=== PATIENT | female | born 1945 | race Caucasian/White ===

== ENCOUNTER 2016-09-15 08:56 | Emergency (ER) | payer MEDICARE ==
[~2016-09-15] VITALS: Ht 157.5 cm; Wt 47.3 kg
[~2016-09-15 08:56] MED LIST: ALEN70TA2 PO; ALPR0.5T PO; ARIP30TA PO; BUSP10TA2 PO; CETI10CA PO; CHOL10008 PO; DICL100G8 TOPICAL; DICY10CA13 PO; DOCU100C8 PO; DULO60CA42 PO; LEVO75TA4 PO; LIDO5CRE17 TOPICAL; MAGN296S PO; MELA3TAB35 PO; MIDO10TA PO; NITR100 PO; OMEG1CAP5 PO; OMEP-113 PO; ONDA8TAB10 PO; OXYC-465 PO; POLY17PO6 PO; QUET100T PO; SENN8.8S8 PO; SIMV20TA4 PO; SODI1PAC NS; TRAZ-118 PO; VITA1CAP PO; VITA400C64 PO
[2016-09-15 08:58] VITALS: PULSE 91; RESP 22; O2SAT 100
[2016-09-15 09:06] VITALS: BP 137/67; PULSE 91; RESP 21; O2SAT 100
--- NOTE | 2016-09-15 09:17 | ED.REPORT ---
HPI-General Illness Date of Service Sep 15, 2016 ED Provider: Marcel Miranda DO The patient is a 70 year old female with history of chronic kidney disease stage III, irritable bowel syndrome, fibromyalgia, and gout, who presents to the emergency department with multiple complaints. The patient complains of "severe" nausea, vomiting (x1 this morning), abdominal cramping, "violent" shaking and restlessness x 3 days, sore throat and nasal congestion, intermittent palpitations, and "10/10" back, abdominal and neck pain that she relates to old shingles pain. She is unsure why she is shaking. She denies fever, chills, hematemesis, diarrhea, constipation, dysuria, hematuria, shortness of breath or chest pain. Nursing Notes Stated Complaint: NAUSEA/HB PRESSURE/SHAKING Chief Complaint: General Complaint Nursing Notes Reviewed: Yes Allergies: Coded Allergies: levofloxacin (Verified Allergy, Severe, Anaphylaxis, 12/15/15) Penicillins (Verified Allergy, Unknown, Hives, 12/15/15) metoclopramide (Verified Allergy, Unknown, Hives, 12/15/15) Scheduled Alendronate Sodium (Fosamax) 70 Mg Tablet 70 MG PO WEEKLY Aripiprazole (Abilify) 30 Mg Tablet 30 MG PO HS Buspirone (Buspirone) 10 Mg Tablet 10 MG PO TID Cetirizine HCl (Zyrtec) 10 Mg Capsule 10 MG PO HS Cholecalciferol (Vitamin D3) (Vitamin D3) 1,000 Unit Tab.chew 1,000 UNIT PO DAILY Diclofenac Gel (Voltaren Gel) 100 Gm Tube 1 APPLIC TOPICAL QID Duloxetine (Cymbalta) 60 Mg Capsule.dr 60 MG PO HS Levothyroxine (Levothyroxine) 75 Mcg Tablet 75 MCG PO DAILY Lidocaine Cream (Lidocaine Cream) 5 Gm Cream..g. 1 APPLIC TOPICAL BID Melatonin (Melatonin) 3 Mg Tablet 3 MG PO HS Midodrine (Midodrine) 10 Mg Tablet 10 MG PO TID Nitrofurantoin Monohyd/M-Cryst (MacroBid) 100 Mg Capsule 100 MG PO BID [place]-3 Fatty Acids/Fish Oil (Fish Oil 1,000 mg Capsule) 1 Each Capsule 1 EACH PO DAILY Omeprazole Magnesium (Omeprazole) 20 Mg Capsule.dr 20 MG PO DAILYAC Polyethylene Glycol 3350 (Miralax) 17 Gm Powd.pack 17 GM PO DAILY Quetiapine Fumarate (Seroquel) 100 Mg Tablet 100 MG PO HS Simvastatin (Simvastatin) 20 Mg Tablet 20 MG PO DAILY Sodium Chloride/Sodium Bicarb (Sinucleanse Saline Packet) 1 Each Packet 1 EACH NS DAILY Trazodone (Trazodone) 100 Mg Tablet 400 MG PO HS Vitamin B Complex (Vitamin B Complex) 1 Each Capsule 1 EACH PO DAILY Vitamin E Mixed (Vitamin E) 400 Unit Capsule 400 UNIT PO DAILY Scheduled PRN Alprazolam (Xanax) 0.5 Mg Tablet 0.5 MG PO BID PRN PRN For Anxiety Dicyclomine (Dicyclomine) 10 Mg Capsule 10 MG PO QID PRN PRN For GI Cramps Docusate Sodium (Docusate Sodium) 100 Mg Capsule 100 MG PO TID PRN PRN For Constipation Magnesium Citrate (Magnesium Citrate) 296 Ml Solution 296 ML PO DAILY PRN PRN For Constipation Drink 1/2 bottle daily for 2 days. Repeat in 1 week. Magnesium Hydroxide (Milk of Magnesia) 400 Mg/5 Ml Oral.susp 15 ML PO DIRECTED PRN PRN For Constipation initially every 6 hours, then adjust to 1-2 times daily in order have soft BMs daily. Ondansetron ODT (Ondansetron ODT) 8 Mg Tab.rapdis 8 MG PO Q4H PRN PRN For Nausea Sennosides (Senna) 8.8 Mg/5 Ml Syrup 8.8 MG PO BID PRN PRN For Constipation oxyCODONE-Acetaminophen 7.5-325 mg (oxyCODONE-Acetaminophen 7.5-325 mg) 1 Each Tablet 1 TAB PO Q6HR PRN PRN For Pain oxyCODONE-Acetaminophen 7.5-325 mg (oxyCODONE-Acetaminophen 7.5-325 mg) 1 Each Tablet 1 TAB PO QID PRN PRN For Pain General Time Seen by MD: 09:10 Chief Complaint Multip medical complaints Hx Obtained From: Patient Arrived By: Walk-in Past Medical History Past Medical History Notes: PCP: CATHY Treadwell Past Medical History Psychiatric history-unspecified Chronic kidney disease stage three Right hip pain Gout Fibromyalgia Irritable bowel syndrome Arthritis Chronic back and neck pain Past Surgical History Exploratory abdominal surgery Reports: Appendectomy, Cholecystectomy, Hysterectomy, Tonsillectomy Family History Noncontributory Smoking History Never Smoker Social History Alcohol Use: "Social" Drug Use: THC Other Social History: Good social support, Frequent ED visitor, Local resident Ambulatory Status Independent Review of Systems Full Review of Systems Constitutional: Denies: Chills, Fever Ears / Nose / Throat: Reports: Nasal congestion, Sore throat Respiratory: Denies: Shortness of breath Cardiovascular: Reports: Palpitations, Denies: Chest pain GI: Reports: Abdominal pain, Nausea, Vomiting, Denies: Constipation, Diarrhea, Hematemesis Female: Denies: Dysuria, Hematuria Musculoskeletal: Reports: Back pain, Neck pain Neurologic: Reports: Shaking Complete sys rev & neg: except as marked. Physical Exam Vital Signs Vital Signs Date Time Temp Pulse Resp B/P Pulse Ox O2 Delivery O2 Flow Rate FiO2 09/15/16 12:42 82 16 144/72 09/15/16 09:06 91 21 137/67 100 Room Air 09/15/16 08:58 36.1 91 22 100 Initial VS: Reviewed Head / Eyes: Atraumatic, Normocephalic, PERRL ENT: Mucous membranes moist, Conjunctiva normal, No scleral icterus Neck: Supple, Non-tender, Full range of motion Respiratory: Breath sounds normal, Clear to auscultation, No respiratory distress Cardiovascular: Regular rate & rhythm, Heart sounds normal, Intact distal pulses Lymphatic: No lymphadenopathy Extremities: Vascular intact, Neuro intact, No swelling, No tenderness Skin: Warm, Dry, No cyanosis Neurologic: Alert, Oriented, Nonfocal Psychiatric: Mood/affect normal, Behavior normal, Normal thought content General/Constitutional: Awake, Alert Behavior: Positive: Restless Abdomen: Soft, No guarding, No rebound, BS normoactive, No distention, No hernia, No palpable mass, No pulsatile mass Tenderness/Guarding/Rebound: Positive: Tender diffuse Multiple surgical scars on her abdomen. Interpretation & Diagnostics Lab Results Interpretation Result Diagram: 09/15/16 0945 09/15/16 0945 Test 09/15/16 09:45 White Blood Count 4.5th/mm3 (3.8-10.1) Red Blood Count 4.93mil/mm3 (3.90-5.20) Hemoglobin 13.9g/dL (12.0-15.6) Hematocrit 42.2% (35.0-46.0) Mean Corpuscular Volume 85.6fL (81-100) Mean Corpuscular Hemoglobin 28.2pg (27.0-35.0) Mean Corpuscular Hemoglobin Concent 32.9% (32.0-37.0) Red Cell Distribution Width 13.5% (12.3-15.4) Platelet Count 286bil/L (150-400) Neutrophils (%) (Auto) 64.5% (40-74) Lymphocytes (%) (Auto) 22.7% (14-46) Monocytes (%) (Auto) 10.6% (4-12) Eosinophils (%) (Auto) 1.1% (0-5) Basophils (%) (Auto) 0.9% (0-3) Sodium Level 139mEq/L (134-144) Potassium Level 4.2mEq/L (3.5-5.2) Chloride Level 101mEq/L (97-108) Carbon Dioxide Level 23mmol/L (18-29) Blood Urea Nitrogen 16mg/dL (8-27) Creatinine 0.99mg/dL (0.57-1.00) Estimat Glomerular Filtration Rate 79mL/min (>59) Glucose Level 104mg/dL (60-99) Lactic Acid Level 1.4mmol/L (0.4-2.0) Calcium Level 10.1mg/dL (8.5-10.1) Magnesium Level 2.1mg/dL (1.6-2.6) Total Bilirubin 0.3mg/dL (0.0-1.2) Aspartate Amino Transf (AST/SGOT) 16U/L (0-50) Alanine Aminotransferase (ALT/SGPT) 12U/L (0-32) Alkaline Phosphatase 49U/L (25-165) Total Protein 7.3g/dL (6.4-8.4) Albumin 4.3g/dL (3.4-5.0) Lipase 100U/L (13-60) ECG Interpretation ECG Interpretation: Sinus rhythm with a rate of 67 PAC Time: 09:57 Interpreted by: ED physician CT Abd / Pelvis Interpretation IMPRESSION: 1. Moderate pneumobilia, unchanged from the study dated 12/08/15, and likely associated with prior biliary intervention. 2. Moderate amount of inspissated stool throughout the colon which may be the etiology the patient's abdominal pain. No zachary bowel obstruction. 2. No other acute intra-abdominal findings. The appendix is not visualized; however there are no ancillary findings to suggest acute appendicitis. Dictated by: Lottie Delcid M.D. on 09/15/2016 at 11:56 Interpretation / Wet Read by: Interpret - Radiologist Re-Eval/Medical Decision Source of Hx: Old records, Family Time of Eval: 12:12 Re-Evaluation/Progress Note: Rechecked the patient. Discussed CT results, diagnosis, and plan for discharge. All questions were addressed. Counseled Regarding: Diagnosis, Lab results, Need for follow-up, When/why to return to ED Discharge & Departure Primary Impression: Abdominal pain Abdominal location: unspecified location Qualified Code: R10.9 - Unspecified abdominal pain Additional Impression: Constipation Constipation type: unspecified constipation type Qualified Code: K59.00 - Constipation, unspecified Disposition: Home Discharge Condition All VS Reviewed: Yes Condition: Stable Patient Instructions: Constipation (ED) Additional Instructions: Thank you for entrusting us with your care today. Your CT scan shows evidence of constipation. Use the milk of magnesia and use a mineral oil enema today. if no solid BM, by tomorrow then use 2 fleets enemas one hour apart tomorrow. Make sure to drink plenty of fluids, Followup with your regular doctor next week if your pain is not improving. Return to the emergency department for any new or concerning symptoms. Referrals: Tosin Rincon (PCP) Scribe Attestation Portions of this note were transcribed by Karine Brown. I, Dr. Miranda personally performed the history, physical exam and medical decision-making; I reviewed and confirmed the accuracy of the information in the transcribed note. Signed by: Nelly Brewster, 09/15/2016 at 1236. copies to: Tosin Rincon Timothy S DO Sep 15, 2016 09:17 Karine Brown Sep 15, 2016 09:34
[2016-09-15] MEDS ORDERED: 0.9% Sodium Chloride 1,000 ML IV ONE (09:41)
[2016-09-15] MEDS ORDERED: Ondansetron 2 mg/mL 2 mL Inj IVPUSH PRN (09:45)
[2016-09-15] MEDS ORDERED: Iohexol 300 mg/mL 30 mL Inj PO ONE (09:55)
[2016-09-15 09:56] LABS: BASOPHILS % (AUTO) 0.9 % (0-3); EOSINOPHILS % (AUTO) 1.1 % (0-5); MONOCYTES % (AUTO) 10.6 % (4-12); Mean Corpuscular Hemoglobin 28.2 pg (27.0-35.0); Mean Corpuscular Volume 85.6 fL (81-100); NEUTROPHILS % (AUTO) 64.5 % (40-74); Platelet Count 286 bil/L (150-400)
[2016-09-15 10:21] LABS: Magnesium 2.1 mg/dL (1.6-2.6)
--- NOTE | 2016-09-15 12:09 | DRSVH ---
PROCEDURE: CT ABDOMEN AND PELVIS WITH CONTRAST ([id number]) INDICATIONS: abd pain, vomiting TECHNIQUE: After the administration of oral and intravenous contrast, 5 mm thick sections acquired from the diap hragms to the symphysis. 5 mm thick coronal and sagittal reformats were performed. For radiation do se reduction, the following was used: automated exposure control, adjustment of mA and/or kV accordi ng to patient size. COMPARISON: [facility], CT, CT ABD PELVIS W CON, 12/08/2015, 19:24. FINDINGS: Image quality: Excellent. ABDOMEN: Lung bases: Lung bases are clear. Heart size is normal. Solid organs: Liver and spleen are normal in size and enhancement. Gallbladder is surgically absent . Mild pneumobilia is present, unchanged from the study dated 12/08/15. Pancreas enhances normally. N o adrenal nodules. Kidneys are normal in size and enhancement, without hydronephrosis. Peritoneum and bowel: Stomach, small bowel, and colon loops are normal in caliber and wall thickness . A moderate mount of inspissated stool is present in the colon. The appendix is not visualized; guillory shamar there is no discrete right lower quadrant fluid or fat stranding to suggest acute appendicitis. N o free fluid or air. Nodes and vessels: No retroperitoneal or mesenteric adenopathy. Aorta and inferior vena cava are no rmal in caliber. There are scattered atheromatous calcifications throughout the aorta and iliac arter ies bilaterally. Miscellaneous: No ventral hernias. PELVIS: Genitourinary: Bladder wall thickness is normal. Miscellaneous: No inguinal hernias or adenopathy. Bones: No suspicious bony lesions. No vertebral body compression fractures. IMPRESSION: 1. Moderate pneumobilia, unchanged from the study dated 12/08/15, and likely associated with prior ashley iary intervention. 2. Moderate amount of inspissated stool throughout the colon which may be the etiology the patient's abdominal pain. No zachary bowel obstruction. 2. No other acute intra-abdominal findings. The appendix is not visualized; however there are no anci llary findings to suggest acute appendicitis. Dictated by: Lottie Delcid M.D. on 09/15/2016 at 11:56 Approved by: Lottie Delcid M.D. on 09/15/2016 at 12:07
[2016-09-15] MEDS ORDERED: MAGN400O4 PO (12:31)
[2016-09-15 12:42] VITALS: BP 144/72; PULSE 82; RESP 16
== END 2016-09-15 12:47 | disposition home or self-care (01) ==
LOC: SED 08:56
DX: K58.1 Irritable bowel syndrome with constipation (principal); N18.3 Chronic kidney disease, stage 3 (moderate); M79.7 Fibromyalgia; G89.29 Other chronic pain; Z87.19 Personal history of other diseases of the digestive system; Z87.39 Personal history of other diseases of the musculoskeletal system and connective tissue; Z88.1 Allergy status to other antibiotic agents; Z88.0 Allergy status to penicillin; Z88.8 Allergy status to other drugs, medicaments and biological substances
CPT/HCPCS: 36415; 74177; 80053; 83605; 83690; 83735; 85025; 93005; 96374; 96375; 99285; J2270; J2405; Q9967

== ENCOUNTER 2016-12-12 08:57 | Emergency (ER) | payer MEDICARE ==
[~2016-12-12] VITALS: Ht 157.5 cm; Wt 45.5 kg
[~2016-12-12 08:57] MED LIST changes: +MAGN400O4 PO
[2016-12-12 09:04] VITALS: BP 95/44; PULSE 64; RESP 12; O2SAT 97
--- NOTE | 2016-12-12 09:08 | ED.REPORT ---
HPI-Chest Pain 40 and Over Date of Service Dec 12, 2016 ED Provider: The patient is a 70 year old female with history of chronic kidney disease, fibromyalgia, irritable bowel syndrome, and chronic pain (on oxycodone - 9, 5 mg tabs daily), who sent to the emergency department from the [facility] for "low blood pressure" that was noted during her visit today. The patient tends to have lower blood pressure at baseline and takes midodrine for this reason,. Today she also felt dizzy and lightheaded which is not normal for her however this is now resolved. The patient has been experiencing chest pain over the last 2 months. She describes the pain as a heaviness and ache. Her pain comes and goes and seems to be brought on with increased stress. She is scheduled to have a treadmill stress test in the near future but has been unable to complete this because of a fractured wrist, she is working with her doctor to arrange for a chemical stress test. The patient does not believe she needs to be hospitalized at this time and states she is not sure why she was sent here. Nursing Notes Stated Complaint: CHEST PAIN Chief Complaint: Chest Pain Nursing Notes Reviewed: Yes Allergies: Coded Allergies: levofloxacin (Verified Allergy, Severe, Anaphylaxis, 12/15/15) Penicillins (Verified Allergy, Unknown, Hives, 12/15/15) metoclopramide (Verified Allergy, Unknown, Hives, 12/15/15) Scheduled Alendronate Sodium (Fosamax) 70 Mg Tablet 70 MG PO WEEKLY Aripiprazole (Abilify) 30 Mg Tablet 30 MG PO HS Buspirone (Buspirone) 10 Mg Tablet 10 MG PO TID Cetirizine HCl (Zyrtec) 10 Mg Capsule 10 MG PO HS Cholecalciferol (Vitamin D3) (Vitamin D3) 1,000 Unit Tab.chew 1,000 UNIT PO DAILY Diclofenac Gel (Voltaren Gel) 100 Gm Tube 1 APPLIC TOPICAL QID Duloxetine (Cymbalta) 60 Mg Capsule.dr 60 MG PO HS Levothyroxine (Levothyroxine) 75 Mcg Tablet 75 MCG PO DAILY Lidocaine Cream (Lidocaine Cream) 5 Gm Cream..g. 1 APPLIC TOPICAL BID Melatonin (Melatonin) 3 Mg Tablet 3 MG PO HS Midodrine (Midodrine) 10 Mg Tablet 10 MG PO TID Nitrofurantoin Monohyd/M-Cryst (MacroBid) 100 Mg Capsule 100 MG PO BID [place]-3 Fatty Acids/Fish Oil (Fish Oil 1,000 mg Capsule) 1 Each Capsule 1 EACH PO DAILY Omeprazole Magnesium (Omeprazole) 20 Mg Capsule.dr 20 MG PO DAILYAC Polyethylene Glycol 3350 (Miralax) 17 Gm Powd.pack 17 GM PO DAILY Quetiapine Fumarate (Seroquel) 100 Mg Tablet 100 MG PO HS Simvastatin (Simvastatin) 20 Mg Tablet 20 MG PO DAILY Sodium Chloride/Sodium Bicarb (Sinucleanse Saline Packet) 1 Each Packet 1 EACH NS DAILY Trazodone (Trazodone) 100 Mg Tablet 400 MG PO HS Vitamin B Complex (Vitamin B Complex) 1 Each Capsule 1 EACH PO DAILY Vitamin E Mixed (Vitamin E) 400 Unit Capsule 400 UNIT PO DAILY Scheduled PRN Alprazolam (Xanax) 0.5 Mg Tablet 0.5 MG PO BID PRN PRN For Anxiety Dicyclomine (Dicyclomine) 10 Mg Capsule 10 MG PO QID PRN PRN For GI Cramps Docusate Sodium (Docusate Sodium) 100 Mg Capsule 100 MG PO TID PRN PRN For Constipation Magnesium Citrate (Magnesium Citrate) 296 Ml Solution 296 ML PO DAILY PRN PRN For Constipation Drink 1/2 bottle daily for 2 days. Repeat in 1 week. Magnesium Hydroxide (Milk of Magnesia) 400 Mg/5 Ml Oral.susp 15 ML PO DIRECTED PRN PRN For Constipation initially every 6 hours, then adjust to 1-2 times daily in order have soft BMs daily. Ondansetron ODT (Ondansetron ODT) 8 Mg Tab.rapdis 8 MG PO Q4H PRN PRN For Nausea Sennosides (Senna) 8.8 Mg/5 Ml Syrup 8.8 MG PO BID PRN PRN For Constipation oxyCODONE-Acetaminophen 7.5-325 mg (oxyCODONE-Acetaminophen 7.5-325 mg) 1 Each Tablet 1 TAB PO Q6HR PRN PRN For Pain oxyCODONE-Acetaminophen 7.5-325 mg (oxyCODONE-Acetaminophen 7.5-325 mg) 1 Each Tablet 1 TAB PO QID PRN PRN For Pain General Time Seen by MD: 09:07 Chief Complaint Other (hypotension) Hx Obtained From: Patient, Daughter, Other family..., EMS Arrived By: Ambulance Sudden in Onset?: No Onset Occurred: More than a week ago... Symptom Duration: Since onset Quality: Painful Severity: Current: Mild Severity: Maximum: Moderate Recent Healthcare: No recent hospitalization, Recent doctor visit Similar Sx Previous: Yes Past Medical History Past Medical History Notes: PCP: CATHY Treadwell Past Medical History Psychiatric history-unspecified Chronic kidney disease stage three Right hip pain Gout Fibromyalgia Irritable bowel syndrome Arthritis Chronic back and neck pain Past Surgical History Exploratory abdominal surgery Reports: Appendectomy, Cholecystectomy, Hysterectomy, Tonsillectomy Family History Noncontributory Smoking History Never Smoker Social History Alcohol Use: "Social" Drug Use: THC Other Social History: Good social support, Frequent ED visitor, Local resident Ambulatory Status Independent Review of Systems Review of Systems Note: +hypotension Cardiovascular: Reports: Chest pain Neurologic: Reports: Dizziness, Lightheaded Complete sys rev & neg: except as marked. Physical Exam Initial Vital Signs Vital Signs (First) Date Time Temp Pulse Resp B/P Pulse Ox O2 Delivery O2 Flow Rate FiO2 12/12/16 09:04 36.3 64 12 95/44 97 12/12/16 11:14 Room Air Initial VS: Reviewed Head / Eyes: Atraumatic, Normocephalic, PERRL Neck: Supple, Non-tender, Full range of motion Lymphatic: No lymphadenopathy Extremities: Vascular intact, Neuro intact Skin: Warm, Dry, No cyanosis Neurologic: Alert, Oriented, Nonfocal Psychiatric: Mood/affect normal, Behavior normal, Normal thought content General/Constitutional: Awake, Alert, No acute distress, Well appearing Respiratory / Chest: Atraumatic, Breath sounds NL, Breath sounds = bilat, No respiratory distress, No rales, No rhonchi, No wheezing, No stridor, No chest tenderness Cardiovascular: Heart rate NL, Regular rhythm, Heart sounds NL, No gallop, No murmurs, No rubs, Cap refill not delayed, Peripheral circulation NL, Pulses = bilaterally, No gross BP differential Abdomen: Atraumatic, Soft, Non-tender, McBurney's non-tender, No guarding, No rebound, BS normoactive, No distention, No hernia, No palpable mass Lower Extremity / Pelvis / MS: Neurologic intact, Vascular intact, No edema ENT: Airway patent Mouth: Positive: Mucous membranes dry (slightly) Upper Extremity / MS: Neurologic intact, Vascular intact The patient has a cast on her right forearm. Interpretation & Diagnostics Lab Results Interpretation Result Diagram: 12/12/16 0932 12/12/16 0932 Test 12/12/16 09:32 White Blood Count 8.1th/mm3 (3.8-10.1) Red Blood Count 4.21mil/mm3 (3.90-5.20) Hemoglobin 12.2g/dL (12.0-15.6) Hematocrit 37.2% (35.0-46.0) Mean Corpuscular Volume 88.4fL (81-100) Mean Corpuscular Hemoglobin 29.0pg (27.0-35.0) Mean Corpuscular Hemoglobin Concent 32.8% (32.0-37.0) Red Cell Distribution Width 14.2% (12.3-15.4) Platelet Count 275bil/L (150-400) Neutrophils (%) (Auto) 74.3% (40-74) Lymphocytes (%) (Auto) 13.5% (14-46) Monocytes (%) (Auto) 10.6% (4-12) Eosinophils (%) (Auto) 0.9% (0-5) Basophils (%) (Auto) 0.5% (0-3) Sodium Level 137mEq/L (134-144) Potassium Level 3.8mEq/L (3.5-5.2) Chloride Level 100mEq/L (97-108) Carbon Dioxide Level 21mmol/L (18-29) Blood Urea Nitrogen 13mg/dL (8-27) Creatinine 0.89mg/dL (0.57-1.00) Estimat Glomerular Filtration Rate 90mL/min (>59) Glucose Level 122mg/dL (60-99) Calcium Level 9.1mg/dL (8.5-10.1) Magnesium Level 2.0mg/dL (1.6-2.6) Total Bilirubin 0.2mg/dL (0.0-1.2) Aspartate Amino Transf (AST/SGOT) 13U/L (0-50) Alanine Aminotransferase (ALT/SGPT) 11U/L (0-32) Alkaline Phosphatase 58U/L (25-165) Troponin T 0.010ug/L (0.0-0.011) Total Protein 6.0g/dL (6.4-8.4) Albumin 3.9g/dL (3.4-5.0) Hold Auguste Top Tube Received (Received) ECG Interpretation ECG Interpretation: Sinus rhythm with a rate of 52 bpm Multiple PVCs Normal axis Normal intervals No ST segment elevation Nonspecific T wave flattening in the anterior and lateral leads When compared to prior dated 09/15/16 PVCs are now present and T wave flattening is more pronounced. Time: 09:09 Interpreted by: ED physician X-Ray Chest Interpretation Chest Xray Interpretation: IMPRESSION: No acute cardiopulmonary disease. Dictated by: Mitchel Arguello M.D. on 12/12/2016 at 8:34 Interpretation / Wet Read by: Interpret - Radiologist Re-Eval/Medical Decision Med Decision/Clinical Course The patient is a 70 year old female with history of chronic kidney disease, fibromyalgia, irritable bowel syndrome, and chronic pain (on oxycodone - 9, 5 mg tabs daily), who sent to the emergency department from the [facility] for "low blood pressure" that was noted during her visit today. The patient tends to have lower blood pressure at baseline and takes midodrine for this reason,. Today she also felt dizzy and lightheaded which is not normal for her however this is now resolved. The patient has been experiencing chest pain over the last 2 months. She describes the pain as a heaviness and ache. Her pain comes and goes and seems to be brought on with increased stress. She is scheduled to have a treadmill stress test in the near future but has been unable to complete this because of a fractured wrist, she is working with her doctor to arrange for a chemical stress test. The patient does not believe she needs to be hospitalized at this time and states she is not sure why she was sent here. Here in emergency department the patient is alert/awake and in no apparent distress. Her initial blood pressure is borderline low however she was asymptomatic. Repeat blood pressures normalized. EKG was obtained and interpreted by myself as documented above. Chest x-ray demonstrated no acute cardio pulmonary process. LABS: CBC unremarkable, CMP unremarkable, troponin negative Emergency department the patient was alert/awake in no apparent distress. She did not desire hospitalization for expedited stress test and preferred to work with her primary care physician to arrange for outpatient stress test. She states she feels at baseline and like to be discharged. At this time I see no evidence of acutely life-threatening process. Her ongoing chest discomfort is somewhat concerning however she does not have major coronary artery disease risk factors or any history of coronary artery disease. I feel that in her case expedited outpatient workup is appropriate as long as she follows up closely with her primary care physician to make sure this gets done. Prior to discharge follow-up and return precautions were reviewed in detail with the patient who verbalized understanding and agreement with the plan. The patient was discharged in stable condition. Source of Hx: Old records, EMS Time of Eval: 11:11 Re-Evaluation/Progress Note: Rechecked the patient. Discussed plan for discharge. All questions were addressed. Counseled Regarding: Diagnosis, Lab results, Need for follow-up, When/why to return to ED Discharge & Departure Primary Impression: Hypotension Hypotension type: unspecified hypotension type Qualified Code: I95.9 - Hypotension, unspecified Additional Impressions: Chest pain Chest pain type: unspecified Qualified Code: R07.9 - Chest pain, unspecified Chronic pain syndrome Disposition: Home Discharge Condition All VS Reviewed: Yes Condition: Stable Patient Instructions: Chest Pain (ED) Additional Instructions: Thank you for entrusting us with your care today. Your workup today is reassuring. Call your regular doctor today to discuss scheduling a chemical stress test instead of the treadmill stress test. Continue taking your regularly prescribed medications. Make sure to drink plenty of fluids. Return to the emergency department for new or different chest pain, shortness of breath, syncope, or any other new or concerning symptoms. Referrals: Tosin Rincon (PCP) Scribe Attestation Portions of this note were transcribed by Karine Brown. I, Dr. Villarreal personally performed the history, physical exam and medical decision-making; I reviewed and confirmed the accuracy of the information in the transcribed note. Signed by: Nelly Brewster, 12/12/2016 at 1125. copies to: Tosin Rincon Beck O MD Dec 12, 2016 09:07 Karine Brown Dec 12, 2016 09:13
--- NOTE | 2016-12-12 09:37 | DRSVH ---
PROCEDURE: X-RAY CHEST ONE VIEW, PORTABLE ([id number]) INDICATIONS: 70 year-old female with chest pain for 2 months, now with slurred speech and headaches. TECHNIQUE: One view of the chest was acquired. COMPARISON: [facility], CR, XR ABD ACUTE SERIES 3VW, 09/01/2016, 13:48. [facility], CR, XR CHEST 2VW, 05/03/2016, 12:45. [facility], CR, XR ABD ACUTE SERIES 3VW, 11/25/2015, 18:21. FINDINGS: Surgical changes and devices: Cholecystectomy clips are again noted. Lungs and pleura: No pleural effusions or pneumothorax. Lungs are clear. Mediastinum: Mediastinal contours appear normal. Heart size is normal. Bones and chest wall: No suspicious bony lesions. There is thoracic and lumbar spine scoliosis. Ove rlying soft tissues appear unremarkable. IMPRESSION: No acute cardiopulmonary disease. Dictated by: Mitchel Arguello M.D. on 12/12/2016 at 8:34 Approved by: Mitchel Arguello M.D. on 12/12/2016 at 8:35
[2016-12-12 09:38] LABS: BASOPHILS % (AUTO) 0.5 % (0-3); EOSINOPHILS % (AUTO) 0.9 % (0-5); MONOCYTES % (AUTO) 10.6 % (4-12); Mean Corpuscular Volume 88.4 fL (81-100); NEUTROPHILS % (AUTO) 74.3 % (40-74); Platelet Count 275 bil/L (150-400)
[2016-12-12] MEDS ORDERED: 0.9% Sodium Chloride 1,000 ML IV ONE (09:40)
[2016-12-12 10:23] LABS: TROPONIN T 0.01 ug/L (0.0-0.011)
[2016-12-12 11:14] VITALS: BP 120/45; PULSE 58; RESP 16; O2SAT 97
[2016-12-12 11:24] VITALS: BP 120/45; PULSE 58; RESP 16; O2SAT 97
== END 2016-12-12 11:25 | disposition home or self-care (01) ==
LOC: SED 08:57
DX: I95.9 Hypotension, unspecified (principal); R07.89 Other chest pain; G89.29 Other chronic pain; M79.7 Fibromyalgia; Z88.0 Allergy status to penicillin; Z88.1 Allergy status to other antibiotic agents; Z88.8 Allergy status to other drugs, medicaments and biological substances

== ENCOUNTER → 2017-01-30 | Day surgery (SDC) | payer MEDICARE ==
[~2017-01-30] VITALS: Ht 152.4 cm; Wt 48.8 kg
[~2017-01-30] MED LIST changes: +Bupivacaine-MPF 0.5% 30 mL Inj INFILTRATE ONE; -CETI10CA PO; -DICY10CA13 PO; +DOCU-41 PO; -DOCU100C8 PO; +Dexamethasone 4 mg/mL Inj IVPUSH PRN; +EPHEDrine Sulfate 50 mg/mL Inj IVPUSH PRN; +HYDROmorphone 1 mg/mL Inj IVPUSH PRN; +Labetalol 5 mg/mL 20 mL Inj IV PRN; +Lactated Ringer's 1,000 ML IV SCH; +Lactated Ringer's 500 ML IV PRN; -MELA3TAB35 PO; +MELA3TAB54 PO; +MetoCLOpramide 5 mg/mL 2 mL Inj IVPUSH PRN; -NITR100 PO; -OMEG1CAP5 PO; +OMEP40CA36 PO; +Ondansetron 2 mg/mL 2 mL Inj IVPUSH PRN; -POLY17PO6 PO; +Phenylephrine 10,000 mCg/mL Inj IVPUSH PRN; +Propofol 10 mg/mL 20 mL Inj ONE; -SIMV20TA4 PO; +SODI1KIT NS; -VITA400C64 PO; +VITAMIN B COMPLEX PO; +Vancomycin Inj 1,000 MG in IV Premix 1 EACH IV SCH; +fentaNYL-PF 50 mCg/mL 2 mL Inj IVPUSH PRN; +fentaNYL-PF 50 mCg/mL 2 mL Inj ONE
--- NOTE | 2017-01-30 06:40 | PCM.HPANE ---
Patient Data Surgeon Admitting Provider: Attending Provider:Margi Hermosillo DPM Primary Care Physician:Tosin Rincon Other Provider:Shana Eckertingham Anesthesia Reason for Visit Left Foot Hammertoe, Left Foot Pain Ht/WT & BMI Height (Feet): 5 Height (Inches): 1 Weight (Kilograms): 46.7 Body Mass Index 19.00 Allergies Coded Allergies: Sulfa (Sulfonamide Antibiotics) (Verified Allergy, Severe, 01/26/17) ciprofloxacin (Verified Allergy, Severe, 01/26/17) levofloxacin (Verified Allergy, Severe, Anaphylaxis, 01/26/17) Penicillins (Verified Allergy, Unknown, Hives, 01/26/17) metoclopramide (Verified Allergy, Unknown, Hives, 01/26/17) Past Anesthesia History Anesthesia History: Denies:: Abnormal Airway, Anesthesia Reactions, Difficult Intubation, Fam Anesthesia Reaction, Fam Malignant Hypertherm, Malignant Hyperthermia Diabetes History Hx Diabetes?: No MRSA MRSA: No Medications Active Scripts Magnesium Hydroxide (Milk of Magnesia)400 Mg/5 Ml Oral.susp15 Ml PO DIRECTED PRN For Constipation #1 BOTTLE initially every 6 hours, then adjust to 1-2 times daily in order have soft BMs daily. Prov:Marcel Miranda DO 09/15/16 Magnesium Citrate 296 Ml Oesbyhtn401 Ml PO DAILY PRN For Constipation #2 BOTTLE Drink 1/2 bottle daily for 2 days. Repeat in 1 week. Prov:Gokul Navarrete MD 12/08/15 oxyCODONE-Acetaminophen 7.5-325 mg 1 Each Tablet1 Tab PO QID PRN For Pain #20 TABLET Ref 0 Prov:Gokul Navarrete MD 12/08/15 Ondansetron ODT 8 Mg Tab.rapdis8 Mg PO Q4H PRN For Nausea #20 TABLET Prov:Gokul Navarrete MD 12/08/15 Reported Medications [Vitamin B Complex] No Conflict Check1 Tab PO DAILY 01/30/17 Sodium Chloride/Sodium Bicarb (Sinuflo Readyrinse Nasal Kit)1 Each Kit1 Each NS PRN 01/30/17 Omeprazole 40 Mg Capsule.dr40 Mg PO DAILY 01/30/17 Melatonin (Melatin)3 Mg Tablet5 Mg PO HS #3 TABLET 01/26/17 Docusate Sodium (Colace)100 Mg Dlvnsdn237 Mg PO DAILY PRN For Constipation Ref 0 01/26/17 Alprazolam (Xanax)0.5 Mg Tablet0.5 Mg PO BID PRN For Anxiety Ref 0 09/17/15 Diclofenac Gel (Voltaren Gel)100 Gm Tube1 Applic TOPICAL QID #1 TUBE 09/17/15 Cholecalciferol (Vitamin D3) (Vitamin D3)1,000 Unit Tab.chew1,000 Unit PO DAILY 09/17/15 Trazodone 100 Mg Cxqpkr551 Mg PO HS Ref 0 09/17/15 Quetiapine Fumarate (Seroquel)100 Mg Uixjqd785 Mg PO HS Ref 0 09/17/15 Midodrine 10 Mg Awayuv70 Mg PO TID 09/17/15 Lidocaine Cream 5 Gm Cream..g.1 Applic TOPICAL BID 09/17/15 Alendronate Sodium (Fosamax)70 Mg Wbhfwi47 Mg PO WEEKLY 30 Days Ref 0 09/17/15 Duloxetine (Cymbalta)60 Mg Capsule.dr60 Mg PO HS Ref 0 09/17/15 Buspirone 10 Mg Exmhdk69 Mg PO TID Ref 0 09/17/15 Levothyroxine 75 Mcg Ktslxm08 Mcg PO DAILY 11/20/14 Aripiprazole (Abilify)30 Mg Ymofsr28 Mg PO HS 11/20/14 Discontinued Reported Medications Sodium Chloride/Sodium Bicarb (Sinucleanse Saline Packet)1 Each Packet1 Each NS DAILY 09/17/15 Vitamin B Complex 1 Each Capsule1 Each PO DAILY 11/20/14 Sennosides (Senna)8.8 Mg/5 Ml Syrup8.8 Mg PO BID PRN For Constipation 11/20/14 Omeprazole Magnesium (Omeprazole)20 Mg Capsule.dr20 Mg PO DAILYAC 11/20/14 Cetirizine HCl (Zyrtec)10 Mg Kyhiycp86 Mg PO HS #30 CAPSULE Ref 0 09/17/15 oxyCODONE-Acetaminophen 7.5-325 mg 1 Each Tablet1 Tab PO Q6HR PRN For Pain Ref 0 09/17/15 Melatonin 3 Mg Tablet3 Mg PO HS 09/17/15 Vitamin E Mixed (Vitamin E)400 Unit Qadyfbr592 Unit PO DAILY 11/20/14 Polyethylene Glycol 3350 (Miralax)17 Gm Powd.pack17 Gm PO DAILY 11/20/14 [place]-3 Fatty Acids/Fish Oil (Fish Oil 1,000 mg Capsule)1 Each Capsule1 Each PO DAILY 11/20/14 Docusate Sodium 100 Mg Mykldvp494 Mg PO TID PRN For Constipation 30 Days Ref 0 11/20/14 Simvastatin 20 Mg Byhnly19 Mg PO DAILY 11/20/14 Discontinued Scripts Dicyclomine 10 Mg Nkkipza45 Mg PO QID PRN For GI Cramps #20 CAPSULE Ref 0 Prov:Naeem Vázquez MD 12/15/15 Nitrofurantoin Monohyd/M-Cryst (MacroBid)100 Mg Avdesfz169 Mg PO BID 5 Days Ref 0 Prov:Froy Jennings 09/17/15 History History of ENT Problems?: No HEENT History: Positive for:: Sinus Problem (prone to sinus infections) Denies:: Abnormal Airway Difficult Intubation Dysphagia Hearing Problem TMJ Denture Type: None Retainer/Research Biologist Teeth Condition: Within Normal Limits Hx of Heart Problems?: No Cardiovascular History: Denies:: Abdominal Aortic Aneurism Atrial Fibrillation Cardiac Surgery Chest Pain Congestive Heart Failure Hypertension Rheumatic Fever Hx of Respiratory Problem?: No Respiratory History: Positive for:: Pneumonia Use of Inhalers / NEBS Denies:: Asthma COPD Chest Surgery Cough Dyspnea Emphysema Hemoptysis Oxygen Administration Pulmonary Embolism Tuberculosis Use of C-PAP Machine Hx Neurologic Problems?: No Neurological History: Positive for:: Dementia Seizures (febrile seizure) Denies:: Alzheimer's Disease CVA Dizziness Headaches Multiple Sclerosis Parkinson's Disease TIA Hx of GI Problems?: No Hx of Problems?: No Genitourinary History: Denies:: HX of Hemodialysis Urinary Tract Infection HX of Peritoneal Dialysis: No Skin History: Denies:: History Skin Disorders? Pressure Ulcers Hx Musculoskeletal Problems?: No Musculoskeletal History: Positive for:: Fibromyalgia Musculoskeletal Trauma (wrist fracture 2017) Rheumatoid Arthritis Denies:: Back Injury Degenerative Joint Joint Replacement Myasthenia Gravis Osteoarthritis Hx of Psycho/Social Problems?: No Psycho Social History: Positive for:: Anxiety Bipolar Disorder Hx Depression Hx Surgeries?: No (graeme, MESSI, appe, open lab with removal of left over ovary missed on MESSI.) Hx Any Other Health Problems?: No Other History: Positive for:: Thyroid Disease (hypothyroid) Denies:: Cancer Endocrine Disease History Blood Transfusions: Positive for:: Accept Blood Products? Denies:: Blood Transfusions Hx Diabetes: No Hx Alcohol Use: Yes (occasional beer or wine)Hx Substance Use: Yes (eatables) Smoking Status: Never Smoker Have You Smoked inLast 12 mo: No Stop/Bang S-Snoring: Do You Snore Loudly: Yes T-Tired: feel tired, fatigued: Yes O-Obsered: Observed not breath: No P-Blood Pressure: treated: No B- Body Mass Index > 35 kg/m2: No A- Age over 50: Yes N- Neck Large Circumference: No G- Gender Male: No MARY JANE Total Score: 3 MARY JANE Risk Assessment: Low Risk, <3 Yes Risk Assessment Category Category 1A: Patient has history of documented sleep apnea, and HAS NOT received any narcotic, sedative or anesthesia administration during this stay. Category 1B: Patient has history of documented sleep apnea, and HAS received any narcotic , sedative or anesthesia administration during this stay Category 2: Patient has SUSPECTED Obstructive Sleep Apnea, and HAS received any narcotic , sedative or anesthesia administration during this stay. Category 3: Patient has SUSPECTED Obstructive Sleep Apnea and HAS NOT received narcotic, sedative or anesthesia administration during this stay. Category 4: Outpatient in Procedural Areas with known sleep apnea or who screen positive for High Risk via the STOP/BANG questionnaire. Exam Exam General Appearance: Alert, Oriented X3, Cooperative, No Acute Distress HEENT/AIRWAY: MP 2 Lungs: Clear to Auscultation, Normal Air Movement Heart: Exam Unremarkable, Regular Rate/Rhythm, No Murmurs/Rubs/Gallops Plan Impression Patient chart reviewed, patient interviewed and anesthestic plan with risks, benefits, and alternatives discussed, and informed consent obtained. ASA Physical Status: ASA2 Mod Systemic Disease Anesthetic Plan: MAC Bene/Risks/Altern/Consents: Yes HP Complete Prior to Induction: Yes Svetlana Hartman MD Jan 30, 2017 06:40
[2017-01-30] MEDS: Lactated Ringer's 1,000 ML IV SCH ×2 (06:54→08:53)
[2017-01-30 07:36] VITALS: BP 104/50; PULSE 63; RESP 16; O2SAT 98
[2017-01-30 09:30] VITALS: BP 117/50; PULSE 66; RESP 18; O2SAT 97
--- NOTE | 2017-01-30 09:46 | PCM.PODPO ---
Podiatry Operative Report Date of Service: Jan 30, 2017 Date of Service Jan 30, 2017 Pre Operative Diagnosis Left 2nd hammertoe Post Operative Diagnosis Left 2nd hammertoe Procedure Left 2nd hammertoe repair (fusion of PIP joint) Surgeon Surgeon: Margi Hermosillo DPM Assistants: Anant Hu MS4 Indication for Procedure Painful digit, left second toe Findings Well corrected deformity after excision of proximal interphalangeal joint and reapproximation Details of Procedure The patient was identified in the preoperative holding area and brought back to the operating room. She was placed on the operating table in supine position. The timeout protocol was completed in the patient's name and site of surgery confirmed. IV sedation was initiated. The patient's left foot was anesthetized in the second ray block. The left foot was prepped and draped in usual aseptic manner. The patient's foot was kept elevated on the bone foam positioner. Incision was made on the dorsal aspect of the proximal interphalangeal joint, set slightly laterally and extended to the metatarsophalangeal joint. Using a # 15 scalpel the extensor tendon was transected at the proximal interphalangeal joint, the lateral collateral ligaments were freed off of the proximal phalangeal head and middle phalangeal base. The joint surfaces were resected using a bone saw. Edges were excised with the rongeur. The wound was irrigated with normal saline. A 0.045 inch K wire was used to create a channel for the monofilament wire for fixation. This was done with distal dorsally through the center of the base of the middle phalanx, extending through the middle of the proximal phalangeal head and extending dorsally and proximally. A loop fixation with a 26-gauge monofilament wire was performed. The joint was well coapted and directly visualized. No x-rays were necessary. The extensor tendon was transected further to decrease this lack of the tendon at the proximal interphalangeal level. A 4-0 Vicryl suture was used in of horizontal and simple interrupted stitch technique to reapproximate the tendon ends. The subcuticular tissue was closed with 4-0 Vicryl with buried knots. This was reinforced with Steri-Strips. The dressing consisted of Lowe silk, normal saline moistened gauze, Kerlix, and Coban. IV sedation was weaned off and the patient was transported to the day surgery with vital signs stable and the vascular status to the left foot intact. Grafts, Implants: Implants-See Implant Record Complications There were no periprocedural complications identified. Condition Stable Anesthetic Administered: MAC Drains: None Catheters: None Output, Estimated Blood Loss: 5 (ml) Blood Admin during surgery: No Surgical Cast or Splint: Post-op Boot Surgical Specimen Removed: No Specimen sent to Pathology: No Post Operative Plan Weightbearing as tolerated is indicated in a postoperative shoe. The patient is to keep the dressing clean, dry, intact until the follow-up visit in 1 week. Postop pain medication was previously prescribed. Margi Hermosillo DPM Jan 30, 2017 09:46
[2017-01-30 10:03] VITALS: BP 124/55; PULSE 61; RESP 18; O2SAT 97
--- NOTE | 2017-01-30 10:05 | PCM.ANEP1 ---
Post Anesthesia PACU Phase 1 Assessment Vital Signs Vital Signs Date Time Temp Pulse Resp B/P Pulse Ox O2 Delivery O2 Flow Rate FiO2 01/30/17 10:03 61 18 124/55 97 Room Air 01/30/17 09:30 36.2 66 18 117/50 97 Room Air 01/30/17 07:36 36.8 63 16 104/50 98 Room Air Anesthetic Administered: MAC Level of Alertness: Awake, talking HAYES's with Equal Strength: Yes Pain: No Nausea or Vomiting: No CV Function & Hydration Stable: No Airway Device: Lungs: Clear to Auscultation, Normal Air Movement PACU Phase 2 Assessment Complications: No Follow up Care: No Patient Instructions Provided: N/A Svetlana Hartman MD Jan 30, 2017 10:05
== END | disposition home or self-care (01) ==
LOC: SAS 06:49
PROVIDERS: ATTEND Podiatrist
DX: M20.42 Other hammer toe(s) (acquired), left foot (principal); M79.672 Pain in left foot; M79.7 Fibromyalgia; E78.00 Pure hypercholesterolemia, unspecified; N18.3 Chronic kidney disease, stage 3 (moderate); F31.9 Bipolar disorder, unspecified; E03.9 Hypothyroidism, unspecified; F41.9 Anxiety disorder, unspecified; J44.9 Chronic obstructive pulmonary disease, unspecified; F12.90 Cannabis use, unspecified, uncomplicated
CPT/HCPCS: 28285; J2250; J2704; J3010; J3370; J7120

== ENCOUNTER 2017-02-07 14:51 | Inpatient (IN) | payer MEDICARE ==
[~2017-02-07] VITALS: Ht 152.4 cm; Wt 51.8 kg
[2017-02-07] VITALS (9 sets, daily range): BP systolic 96–157; BP diastolic 44–82; PULSE 42–74; RESP 10–18; O2SAT 94–99
[~2017-02-07 14:51] MED LIST changes: -Bupivacaine-MPF 0.5% 30 mL Inj INFILTRATE ONE; -Dexamethasone 4 mg/mL Inj IVPUSH PRN; -EPHEDrine Sulfate 50 mg/mL Inj IVPUSH PRN; -HYDROmorphone 1 mg/mL Inj IVPUSH PRN; -Labetalol 5 mg/mL 20 mL Inj IV PRN; -Lactated Ringer's 1,000 ML IV SCH; -Lactated Ringer's 500 ML IV PRN; -MetoCLOpramide 5 mg/mL 2 mL Inj IVPUSH PRN; -OMEP-113 PO; -Ondansetron 2 mg/mL 2 mL Inj IVPUSH PRN; -Phenylephrine 10,000 mCg/mL Inj IVPUSH PRN; -Propofol 10 mg/mL 20 mL Inj ONE; -SENN8.8S8 PO; -SODI1PAC NS; -VITA1CAP PO; -Vancomycin Inj 1,000 MG in IV Premix 1 EACH IV SCH; -fentaNYL-PF 50 mCg/mL 2 mL Inj IVPUSH PRN; -fentaNYL-PF 50 mCg/mL 2 mL Inj ONE
[2017-02-07 16:05] LABS: BASOPHILS % (AUTO) 0.6 % (0-3); MONOCYTES % (AUTO) 10.1 % (4-12); Mean Corpuscular Hemoglobin 29.4 pg (27.0-35.0); Mean Corpuscular Volume 86.1 fL (81-100); NEUTROPHILS % (AUTO) 64.2 % (40-74); Platelet Count 371 bil/L (150-400)
--- NOTE | 2017-02-07 16:10 | ED.REPORT ---
HPI-General Illness Date of Service Feb 07, 2017 ED Provider: Renzo Villarreal MD Pt is a 71 year old female presenting to the ED brought in by her brother for concern of accidental overdose on prescription drugs. Pt is noted to take Xanax and Percocet for pain related to a recent foot surgery. She complains of nausea , dizziness and fatigue but denies any suicidal ideation or intentional overdose. Denies vomiting, chills, fever, SOB or wheezing. Her brother reports that she had left foot surgery about a week ago, and has been sleeping a lot since. This morning she slept in later than usual until 0830 and was at baseline after awakening. Her brother left the house at 1030 and when he returned she was deeply sleeping and he was unable to wake her up. There is no known history of trauma, upon further questioning after noting the patient's profound bradycardia she states that she "has been seen for this before" but does not take any medications and is not sure if she is ever seen a cardiology. Nursing Notes Stated Complaint: POSS INTENTIONAL OVERDOSE Chief Complaint: General Complaint Nursing Notes Reviewed: Yes Allergies: Coded Allergies: Sulfa (Sulfonamide Antibiotics) (Verified Allergy, Severe, 01/26/17) ciprofloxacin (Verified Allergy, Severe, 01/26/17) levofloxacin (Verified Allergy, Severe, Anaphylaxis, 01/26/17) Penicillins (Verified Allergy, Unknown, Hives, 01/26/17) metoclopramide (Verified Allergy, Unknown, Hives, 01/26/17) Scheduled Alendronate Sodium (Fosamax) 70 Mg Tablet 70 MG PO WEEKLY Sunday mornings Alprazolam (Xanax) 0.5 Mg Tablet 1 MG PO TID Aripiprazole (Abilify) 30 Mg Tablet 30 MG PO HS Buspirone (Buspirone) 10 Mg Tablet 10 MG PO TID Cholecalciferol (Vitamin D3) (Vitamin D3) 1,000 Unit Tab.chew 6,000 UNIT PO DAILY Donepezil (Donepezil) 10 Mg Tablet 10 MG PO HS Duloxetine (Cymbalta) 60 Mg Capsule.dr 60 MG PO HS Levothyroxine (Levothyroxine) 75 Mcg Tablet 75 MCG PO DAILY Lidocaine Cream (Lidocaine Cream) 5 Gm Cream..g. 1 APPLIC TOPICAL BID Lubiprostone (Amitiza) 24 Mcg Capsule 24 MCG PO BIDBL Melatonin (Melatonin) 5 Mg Tablet 10 MG PO HS Midodrine (Midodrine) 10 Mg Tablet 10 MG PO TID Multivitamin (Multi Vitamin Daily) 1 Each Tablet 1 EACH PO DAILY Omeprazole (Omeprazole) 40 Mg Capsule.dr 40 MG PO DAILY Prazosin (Prazosin) 1 Mg Capsule 4 MG PO HS Quetiapine Fumarate (Seroquel) 100 Mg Tablet 100 MG PO HS Trazodone (Trazodone) 100 Mg Tablet 400 MG PO HS Scheduled PRN Ondansetron (Ondansetron) 4 Mg Tablet 4 MG PO TID PRN PRN For Nausea oxyCODONE-Acetaminophen 5-325 mg (oxyCODONE-Acetaminophen 5-325 mg) 1 Each Tablet 1-2 TAB PO Q4-6H PRN PRN For Pain General Time Seen by MD: 15:03 Chief Complaint Other (Fatigue) Hx Obtained From: Patient, Other family... (brother) Arrived By: Walk-in Sudden in Onset?: No Onset Occurred: 1 week ago Symptom Duration: Since onset Severity: Current: No pain currently Severity: Maximum: No pain Recent Healthcare: No recent hospitalization, Recent doctor visit, Previous surgery Similar Sx Previous: No Past Medical History Past Medical History Notes: PCP: CATHY Treadwell Past Medical History Psychiatric history-unspecified Chronic kidney disease stage three Right hip pain Gout Fibromyalgia Irritable bowel syndrome Arthritis Chronic back and neck pain Past Surgical History Exploratory abdominal surgery Left foot surgery Reports: Appendectomy, Cholecystectomy, Hysterectomy, Tonsillectomy Family History Noncontributory Smoking History Never Smoker Social History Alcohol Use: "Social" Drug Use: THC Other Social History: Good social support, Frequent ED visitor, Local resident Ambulatory Status Independent Review of Systems Full Review of Systems Constitutional: Reports: Fatigue, Denies: Chills, Fever Respiratory: Denies: Shortness of breath, Wheezing GI: Reports: Nausea, Denies: Vomiting Neurologic: Reports: Dizziness Psychiatric: Denies: Suicidal ideation Complete sys rev & neg: except as marked. Physical Exam Vital Signs Vital Signs Date Time Temp Pulse Resp B/P Pulse Ox O2 Delivery O2 Flow Rate FiO2 02/07/17 16:27 58 10 134/59 97 02/07/17 15:38 36.6 42 14 96/44 98 Room Air 02/07/17 15:06 36.6 55 12 116/57 99 Room Air 02/07/17 14:55 36.6 46 12 157/82 99 Room Air Initial VS: Reviewed Abdomen / GI: Soft, Non-tender, No guarding, No rebound, No distention Extremities: Vascular intact, Neuro intact, No swelling, No tenderness Skin: Warm, Dry, No cyanosis Neurologic: Alert, Oriented, Nonfocal Psychiatric: Mood/affect normal, Behavior normal, Normal thought content General/Constitutional: Awake, Alert Extremely dry mucuous membranes. Answering questions. Intermittently nodding off as she becomes intermittently bradycardic into the 30s. Head / Eyes: Atraumatic, Normocephalic Pupils slightly pinpoint. Respiratory / Chest: Breath sounds NL, No respiratory distress, No rales, No rhonchi, No wheezing Breathing normally. Cardiovascular: Regular rhythm, Heart sounds NL, No gallop, No murmurs, No rubs Heart Rate / Rhythm: Positive: Bradycardia Lower Extremity / Pelvis / MS: No deformity, Neurologic intact, Vascular intact Post op shoe on left foot. No calf swelling or tenderness. Interpretation & Diagnostics Lab Results Interpretation Result Diagram: 02/07/17 1559 02/07/17 1559 Test 02/07/17 15:59 02/07/17 16:27 White Blood Count 6.9th/mm3 (3.8-10.1) Red Blood Count 4.45mil/mm3 (3.90-5.20) Hemoglobin 13.1g/dL (12.0-15.6) Hematocrit 38.3% (35.0-46.0) Mean Corpuscular Volume 86.1fL (81-100) Mean Corpuscular Hemoglobin 29.4pg (27.0-35.0) Mean Corpuscular Hemoglobin Concent 34.2% (32.0-37.0) Red Cell Distribution Width 13.2% (12.3-15.4) Platelet Count 371bil/L (150-400) Neutrophils (%) (Auto) 64.2% (40-74) Lymphocytes (%) (Auto) 22.8% (14-46) Monocytes (%) (Auto) 10.1% (4-12) Eosinophils (%) (Auto) 2.0% (0-5) Basophils (%) (Auto) 0.6% (0-3) Sodium Level 136mEq/L (134-144) Potassium Level 5.3mEq/L (3.5-5.2) Chloride Level 98mEq/L (97-108) Carbon Dioxide Level 23mmol/L (18-29) Blood Urea Nitrogen 22mg/dL (8-27) Creatinine 1.04mg/dL (0.57-1.00) Estimat Glomerular Filtration Rate 75mL/min (>59) Glucose Level 119mg/dL (60-99) Calcium Level 9.1mg/dL (8.5-10.1) Total Bilirubin 0.3mg/dL (0.0-1.2) Aspartate Amino Transf (AST/SGOT) 20U/L (0-50) Alanine Aminotransferase (ALT/SGPT) 14U/L (0-32) Alkaline Phosphatase 57U/L (25-165) Troponin T < 0.010ug/L (0.0-0.011) Total Protein 7.2g/dL (6.4-8.4) Albumin 4.1g/dL (3.4-5.0) Thyroid Stimulating Hormone (TSH) 1.010uIU/mL (0.450-4.500) Salicylates Level < 3.0ug/mL (30-250) Acetaminophen Level < 15.0ug/mL Rx (10-25) Alcohols < 10mg/dL (0-10) Hold Auguste Top Tube Received (Received) ECG Interpretation ECG Interpretation: Sinus bradycardia with a rate of 46. Normal axis and intervals. No ST elevation or Q wave abnormalities. When compared to prior dated 12/12/2016 she remains bradycardic. No acute morphological changes. Occasional PVCs no longer present. Time: 15:50 Interpreted by: ED physician Re-Eval/Medical Decision Med Decision/Clinical Course In summary, the patient is a 71-year-old female who presents to the emergency department due to concern for possible accidental overdose of benzodiazepine and opiate medications. Upon arrival she is noted to be profoundly bradycardic with a heart rate dipping down into the 30s and associated with hypotension with blood pressure in the 70s to 80s systolic. She is noted to become very somnolent with increasing bradycardia and increasing level of consciousness when her heart rate increases. Her overall presentation is not consistent with benzodiazepine or opiate toxidrome. She is noted to appear profoundly dehydrated with very dry mucous membranes. Upon arrival in the emergency department pacer plants were placed and the patient was placed on continuous cardiac monitoring and pulse oximetry. 2 peripheral IVs were obtained and [id number] fluid boluses were administered. Given her hypotension and altered level of consciousness in the setting of profound bradycardia I administered atropine with good effect. Patient is a poor historian and is not able to tell me what type of workup she has had in the past for her bradycardia Reviewed pt's most recent echo 12/22/2016 which demonstrated normal left ventricular size, EJF 60-65% patent foramen ovale is suspected, moderate mitral regurgitation, mild aortic regurgitation, mild tricuspid regurgitation and evidence of pulmonary hypertension. No other relevant documentation can be obtained on the pt and I don't see any cardiology notes available. EKG shows sinus bradycardia with a rate of 46. Normal axis and intervals. No ST elevation or Q wave abnormalities. When compared to prior dated 12/12/2016 she remains bradycardic. No acute morphological changes. Occasional PVCs no longer present. Laboratory studies notable as below Mild acute kidney injury Significant electrolyte abnormalities CBC unremarkable TSH within normal limits Salicylates and Tylenol negative Alcohol negative Drug screen positive for benzodiazepines, THC and oxycodone Patient was discussed with cardiology and was evaluated at bedside. They would like her to be admitted to the hospitalist service for ongoing close telemetry monitoring. After receiving atropine IV fluids her blood pressure and heart rate stabilized at her mental status improved. The patient was maintained on monitoring with pacer pads that she seems to respond well to atropine alone. At this time in reviewing the patient's medication list I do not see that she is taking any medications that would result in such profound sinus bradycardia. Patient was discussed cost with admitting hospitalist and etc. for further management and consultation with cardiology. Time of Eval: 16:25 Patient Status: Condition improved Re-Evaluation/Progress Note: Pt stable. Consultation #1: Referral / Consult Name: Carolyn Sharma MD Consulted With: Cardiology Call Returned at: 16:26 Note: Admit her to P[facility] and he will consult. Consultation #2: Referral / Consult Name: Pallavi Garcia DO Consulted With: Hospitalist Call Returned at: 16:48 Drier Unloader: Will see patient, Agrees with plan, Accepts admit Counseled Regarding: Diagnosis, Lab results, Need for admission Discharge & Departure Primary Impression: Sinus bradycardia Additional Impressions: Hypotension Hypotension type: unspecified hypotension type Qualified Code: I95.9 - Hypotension, unspecified Altered mental status Altered mental status type: unspecified Qualified Code: R41.82 - Altered mental status, unspecified Severe dehydration Severe sinus bradycardia Disposition: ADMITTED TO HOSPITAL Discharge Condition All VS Reviewed: Yes Condition: Improved Referrals: Tosin Rincon (PCP) Crit Care Except Billable Proc Time Spent: 105-134 minutes Services Performed: Patient management by me, Time spent at bedside, Reviewing test results, Reviewing imaging, Discussing patient care, Documentation in record, Time with fam/surrogate Critical Care Notes: Management of profound bradycardia with hemodynamic instability Scribe Attestation Portions of this note were transcribed by Sybil Pressley. I, Dr. Villarreal personally performed the history, physical exam and medical decision-making; I reviewed and confirmed the accuracy of the information in the transcribed note. Signed by: Nelly Nathan, 02/07/2017. copies to: Tosin Rincon Beck O MD Feb 07, 2017 16:10 SYBIL PRESSLEY Feb 07, 2017 16:23
[2017-02-07] MEDS ORDERED: 0.9% Sodium Chloride 1,000 ML IV ONE ×2 (16:20)
[2017-02-07 16:51] LABS: TROPONIN T < 0.010 ug/L (0.0-0.011)
[2017-02-07] MEDS ORDERED: ONDA-53 PO (17:23)
[2017-02-07] MEDS ORDERED: MULT-1018 PO (17:23)
[2017-02-07] MEDS ORDERED: DONE10TA42 PO (17:23)
[2017-02-07] MEDS ORDERED: LUBI24CA4 PO (17:23)
[2017-02-07] MEDS ORDERED: MELA5TAB14 PO (17:23)
[2017-02-07] MEDS ORDERED: OXYC1TAB24 PO (17:23)
[2017-02-07] MEDS ORDERED: PRAZ1CAP2 PO (17:24)
--- NOTE | 2017-02-07 17:28 | PCM.HPMED ---
Subjective Date of Service Feb 07, 2017 Primary Provider: Admitting Physician: Primary Care Physician: Tosin Rincon Attending Physician: Chief Complaint: Somnolence, altered mental status History of Present Illness: 71 year old, female with a history of bipolar/depression/anxiety, CKD stage III , IBS, arthritis, fibromyalgia, chronic pain, and one week s/p foot surgery, was sent to the ED by her cigarette machine filler, for bradycardia and confusion. Patient is a poor historian, however her brother who lives with her acted as the primary historian. Brother states that the confusion began approximately two weeks ago, and is associated with transient memory loss, slurred speech, and fatigue which have become progressively worse within the last week. This morning she woke up with a headache, dizziness, and an unstable gate. She admits to constipation regular episodes of constipation with her last bowel movement three days ago. Regarding her mental health, she denies suicidal ideation or having a plan, but states that one month ago she visited her psychiatrist for thoughts of suicide. Denies recent illness, fever, chills, changes to vision/hearing, numbness/ tingling in upper or lower extremities, episodes of headaches prior to today, shortness of breath, chest pain, palpitations, diarrhea, dysuria, polyuria, syncope In the ED patient was found to be bradycardic and hypotensive. Patient was given atropine as well as a a bolus of 2 L normal saline which subsequently increased her blood pressure and heart rate. Dr. Riley was consulted and the patient was admitted for workup of bradycardia. Review of Systems: A complete ROS was performed and found to be negative except as listed in history of present illness Allergies Coded Allergies: Sulfa (Sulfonamide Antibiotics) (Verified Allergy, Severe, 01/26/17) ciprofloxacin (Verified Allergy, Severe, 01/26/17) levofloxacin (Verified Allergy, Severe, Anaphylaxis, 01/26/17) Penicillins (Verified Allergy, Unknown, Hives, 01/26/17) metoclopramide (Verified Allergy, Unknown, Hives, 01/26/17) Home Medications Alendronate Sodium (Fosamax) 70 Mg Tablet 70 MG PO WEEKLY Aripiprazole (Abilify) 30 Mg Tablet 30 MG PO HS Buspirone (Buspirone) 10 Mg Tablet 10 MG PO TID Cholecalciferol (Vitamin D3) (Vitamin D3) 1,000 Unit Tab.chew 1,000 UNIT PO DAILY Diclofenac Gel (Voltaren Gel) 100 Gm Tube 1 APPLIC TOPICAL QID Duloxetine (Cymbalta) 60 Mg Capsule.dr 60 MG PO HS Levothyroxine (Levothyroxine) 75 Mcg Tablet 75 MCG PO DAILY Lidocaine Cream (Lidocaine Cream) 5 Gm Cream..g. 1 APPLIC TOPICAL BID Melatonin (Melatin) 3 Mg Tablet 5 MG PO HS Midodrine (Midodrine) 10 Mg Tablet 10 MG PO TID Omeprazole (Omeprazole) 40 Mg Capsule.dr 40 MG PO DAILY Quetiapine Fumarate (Seroquel) 100 Mg Tablet 100 MG PO HS Sodium Chloride/Sodium Bicarb (Sinuflo Readyrinse Nasal Kit) 1 Each Kit 1 EACH NS PRN Trazodone (Trazodone) 100 Mg Tablet 400 MG PO HS Alprazolam (Xanax) 0.5 Mg Tablet 0.5 MG PO BID PRN PRN For Anxiety Docusate Sodium (Colace) 100 Mg Capsule 100 MG PO DAILY PRN PRN For Constipation Magnesium Citrate (Magnesium Citrate) 296 Ml Solution 296 ML PO DAILY PRN PRN For Constipation Drink 1/2 bottle daily for 2 days. Repeat in 1 week. Magnesium Hydroxide (Milk of Magnesia) 400 Mg/5 Ml Oral.susp 15 ML PO DIRECTED PRN PRN For Constipation initially every 6 hours, then adjust to 1-2 times daily in order have soft BMs daily. Ondansetron ODT (Ondansetron ODT) 8 Mg Tab.rapdis 8 MG PO Q4H PRN PRN For Nausea oxyCODONE-Acetaminophen 7.5-325 mg (oxyCODONE-Acetaminophen 7.5-325 mg) 1 Each Tablet 1 TAB PO QID PRN PRN For Pain PMH Psychiatric history-unspecified Chronic kidney disease stage three Right hip pain Gout Fibromyalgia Irritable bowel syndrome Arthritis Chronic back and neck pain Surgical History Exploratory abdominal surgery Left foot surgery Reports: Appendectomy, Cholecystectomy, Hysterectomy, Tonsillectomy Family History family history significant for depression in mother and 2 daughters Social History Hx Alcohol Use: Yes (occasional beer or wine) Hx Substance Use: Yes (eatables) Smoking Status: Never Smoker Exam Vital Signs Vital Sign - Last Date Time Temp Pulse Resp B/P Pulse Ox O2 Delivery O2 Flow Rate FiO2 02/07/17 16:27 58 10 134/59 97 02/07/17 15:38 36.6 Room Air Exam General: No acute distress, well-developed, well-nourished Head: Normocephalic, atraumatic. External ears without defect. Eyes: Pupils equal, round, and reactive to light and accommodation. Anicteric sclerae, moist conjunctivae. Neck: Normal range of motion, no lymphadenopathy noted Cardiovascular: Regular rate and rhythm with no murmurs, rubs, or gallops appreciated Pulmonary: Clear to auscultation bilaterally with no crackles, wheezes, or rhonchi. Normal respiratory effort with no use of accessory muscles. Abdomen: Bowel tones present. Soft, nontender, nondistended. Extremities: No clubbing, cyanosis, edema Skin: Very barrow, normal temperature, turgor, and texture; no rash, ulcers, or subcutaneous nodules appreciated. Neurological: Cranial nerves grossly intact. Reflexes, coordination, and sensory function within normal limits. Normal muscle strength, tone, and bulk. Psychiatric: Blunted affect. Delayed mentation. Alert and oriented to person, place, and time Lab and Diagnostics Result Diagram: 02/07/17 1559 02/07/17 1559 12-lead ECG ECG Interpretation: Sinus bradycardia with a rate of 46. Normal axis and intervals. No ST elevation or Q wave abnormalities. When compared to prior dated 12/12/2016 she remains bradycardic. No acute morphological changes. Occasional PVCs no longer present. Time: 15:50 Interpreted by: ED physician Cardiac Echo Impressions Echocardiogram Interpretation Summary The left ventricle is normal in size. The ejection fraction is estimated to be 60-65%. The right ventricle is normal in size, thickness and function. A patent foramen ovale is suspected. There is moderate mitral regurgitation. Compared to the prior echo study, there has been an increase in the severity of mitral regurgitation. There is mild aortic regurgitation. Compared to the prior echo study, there has been an increase in the severity of aortic regurgitation. There is mild to moderate tricuspid regurgitation. Compared to the prior echo exam, there has been an increase in TR severity. The right ventricular systolic pressure is estimated at 37.5 mmHg assuming a right atrial pressure of 8 mm Hg. Compared to the prior echo exam, there has been an increase in the severity of pulmonary hypertension. Reading Physician:PM Additional Diagnostics: 1 DAY PHARMACOLOGICAL STRESS TEST IMPRESSION: 1. Normal myocardial perfusion images. 2. Normal left ventricular volume and systolic function. 3. No chest pain or diagnostic EKG changes for ischemia. Dictated by: Glenn Castillo M.D. on 01/29/2017 at 16:16 Approved by: Glenn Castillo M.D. on 01/29/2017 at 16:21 Assessment & Plan Pt is a 71 year old female with past medical history of CKD stage III, gout, fibromyalgia, IBS, arthritis, chronic pain presenting to the ED brought in by her brother for concern of accidental overdose on prescription drugs. Sinus bradycardia, present on admission, active Likely secondary to polypharmacy vs accidental overdose Echo completed in December shows ejection fraction 60-65% with possible PFO, other results as above Pharmacological stress test completed on 01/29/17 with normal findings, results as above - Heart rate remained in the 40s to 50s during the patient's time in the emergency department - Patient was given 1 L fluid challenge with moderate improvement in pressures and heart rate - Her rate currently 75, blood pressure 137/74 (95) - Cardiology consulted, Dr. Riley following Acute encephalopathy secondary to polypharmacy vs accidental overdose, present on admission, active Considering recent foot surgery in combination with the patient's decreased GFR secondary to chronic kidney disease patient is a high risk for accidental overdose Per patient's brother, patient has a prior history of anxiety, depression, bipolar disorder for which she takes a variety of psychiatric medications (as listed below) Patient has a history of suicidal ideation with previous suicide attempt, however this was many years ago Patient currently denies suicidal ideation -Patient appears to be acting appropriately at this time, other than some delayed mentation -Continue to monitor for signs of neurologic deterioration -Attempt to decrease pain medication as well as benzodiazepine use during this hospital stay. -Psychotic medications may be to blame for this episode, however these will need to be titrated down slowly and monitored closely over a period of months with support of outpatient prescribing facility Hypotension, present on admission, active Likely secondary to accidental overdose/polypharmacy - Cardiology consulted, Dr. Riley following - Continue home midodrine Mild hyperkalemia, present on admission, active - Potassium 5.3 on admission - No interventions required at this time - Continue to monitor Chronic Diagnosis: Chronic kidney disease stage 3 BUN 22, creatinine 1.04 on admission GFR 75 Osteoporosis - Continue alendronate Hypothyroidism - Continue levothyroxine Irritable bowel syndrome with constipation Patient reports no bowel movement 3 days - Continue home docusate PRN - Continue home magnesium citrate PRN Chronic pain associated with arthritis and fibromyalgia - Continue home diclofenac gel when necessary - Continue home Cymbalta - Decrease oxycodone dose as tolerated Anxiety/depression, bipolar disorder, chronic - Continue home aripiprazole 30 mg at bedtime - Continue home buspirone 10 mg TID - Continue home Seroquel - Hold home Xanax Insomnia - Continue melatonin - Decrease home trazodone to 350mg QHS (consider titrating down) GERD - Continue omeprazole Disposition: Patient admitted under inpatient status with expected length of stay > 2 midnights for severity of present symptoms, complexities of treatment plan and risk for adverse event Resuscitation Status: CPR: Attempt Resuscitation Time spent 45 minutes Attending Statement The patient was seen and examined together with Dr. Cowart on 02/07/17 and I have added additional information to the note above. Eyad Cowart DO Feb 07, 2017 17:28 Pallavi Garcia DO Feb 07, 2017 21:18
--- NOTE | 2017-02-07 19:16 | PCM.ADCARE ---
Advance Care Planning Note CODE STATUS: Date: 02/07/2017 Diagnosis: CKD stage III, gout, fibromyalgia, IBS, arthritis, chronic pain, Bradycardia Purpose of encounter: Goals of care Parties in attendance: The patient, Dr. Supa Jane Decisional capacity: Good Plan: The patient is aware of the current diagnosis and would like to continue to be full code. The patient understands that this means for chest compressions , intubation, pressors, and all measures involved with CPR. CODE STATUS: Full code Time spent with advanced care planning: Greater than 16 minutes Pallavi Garcia DO Feb 07, 2017 19:16
[2017-02-07] MEDS ORDERED: Ondansetron 2 mg/mL 2 mL Inj IVPUSH PRN (19:20)
[2017-02-07] MEDS ORDERED: Alum-Mag Hydrox-Simeth 30 mL Suspension PO PRN (19:20)
[2017-02-07] MEDS ORDERED: Polyethylene Glycol (PEG) 17 Gm Powder PO PRN (19:20)
[2017-02-07] MEDS ORDERED: oxyCODONE-Acetamin 5-325 mg Tablet PO PRN (20:05)
[2017-02-07] MEDS ORDERED: DULoxetine 30 mg DR Capsule PO SCH (21:00)
[2017-02-07] MEDS: BusPIRone 15 mg Dividose Tablet PO SCH (22:00)
[2017-02-07] MEDS ORDERED: OLAN10TA19 PO (22:40)
[2017-02-07] MEDS ORDERED: ESCI20TA38 PO (22:40)
[2017-02-07] MEDS ORDERED: TIZA4CAP8 PO ×2 (22:40)
[2017-02-07] MEDS ORDERED: ONDA4TAB12 PO (22:40)
[2017-02-07] MEDS ORDERED: TURM500C7 PO (22:40)
--- NOTE | 2017-02-07 22:41 | NUR ---
Med reconciliation/nausea brought in meds and med rec updated in EMR per med labels. Pt requesting Home dose of Amitiza be restarted. MD notified and plan is to not start any more meds overnight, and to address this in AM. Pt was admitted on previous shift. Assumed care at 1930. Had small amount of emesis while eating and given zofran with good effect. Denies nausea at present. Tele sinus yaima in the upper 50's at present.
[2017-02-07 23:17] LABS: APPEARANCE,URINE CLEAR (CLEAR,HAZY); COLOR,URINE STRAW (YELLOW); OCCULT BLOOD,URINE NEGATIVE (NEGATIVE); PH,URINE 5.5 (5.0-8.0); UROBILINOGEN,URINE NORMAL (NORMAL)
[2017-02-08 03:26] VITALS: BP 92/51; PULSE 62; RESP 18; O2SAT 95
[2017-02-08 04:02] LABS: Mean Corpuscular Volume 88.2 fL (81-100)
[2017-02-08 05:12] LABS: Magnesium 2.2 mg/dL (1.6-2.6); Phosphorus 4.1 mg/dL (2.5-4.9)
--- NOTE | 2017-02-08 06:32 | NUR ---
Mentation/pain Has been alert and oriented this shift. Up to bathroom with standby assist. C/o mild dizziness and discussed not getting up without assistance. Pt agreed to this and has been using call light appropriately. C/o chronic pain, including back pain. Usual home med Percocet given with good effect. Tele has been sinus yaima in the 50's while sleeping.
[2017-02-08] MEDS ORDERED: Pantoprazole 40 mg ER24 Tablet PO SCH (07:30)
[2017-02-08 08:00] VITALS: PULSE 78
[2017-02-08 08:19] VITALS: BP 110/58; PULSE 72; RESP 12; O2SAT 97
[2017-02-08] MEDS: BusPIRone 15 mg Dividose Tablet PO SCH (08:21)
--- NOTE | 2017-02-08 11:21 | PCM.CHPCAR ---
Consult Subjective Date of service Feb 08, 2017 Date of admit Feb 07, 2017 at 17:20 Provider Requesting Consult Primary Care Physician Primary Care Physician: Tosin Rincon Chief Complaint Bradycardia, confusion History of Present Illness This is a pleasant 71 year old female who was admitted on 02-07-2017 for bradycardia and confusion. Significant past medical history; CKD III, bipolar/ depression/anxiety, fibromyalgia, chronic pain. On 02-07-17, she went to her feeder associate for a follow up for a foot surgery she had a week ago. Upon assessment at the feeder associate office, she was found to be bradycardic, hypotensive, and confused. The feeder associate sent her to the ED. Upon arrival, she was found to be bradycardic and hypotensive, and was admitted. She was given atropine, and a 2L bolus of normal saline. Her heart rate and blood pressure subsequently increased. According to the patients daughter, and the patients brother, she is a poor historian, and has dementia. The patients brother reports that the morning of 02-07-2017, she woke up with a headache, dizziness, confusion, and unstable gate. The patient lives with her brother. The brother states that the confusion began about two weeks ago, and is associated with transient memory loss, slurred speech, and fatigue. The brother reports that these symptoms have become progressively worse over the last week. The patient reports feeling lightheaded and dizzy yesterday, (02-07-2017). She denied headache, vision changes, vertigo, epistaxis, fainting, shortness of breath, chest pain, N/V, edema. She denies recent illness, but reports recent fall causing injury to her right palm/wrist, and surgery to her left foot. She denies current diarrhea or constipation, but mentions that she frequently has constipation. The patient denies any; hematuria, melena, hematemesis. No history of thromboses. She reports chronic neck pain, back pain, and periods of intermittent weakness and instability. She reports history of depression, anxiety, and suicide attempts. The patient regularly sees a director of staff development, and reports having no suicide attempts for a cpl years. Review of Systems Review of Systems A complete ROS was performed and found to be negative except as listed in history of present illness PMH Past Medical History Bipolar disorder Depression Anxiety Suicide attempts Chronic kidney disease stage three Right hip pain Gout Fibromyalgia Irritable bowel syndrome Arthritis Chronic back and neck pain Past Surgical History Exploratory abdominal surgery Left foot surgery Reports: Appendectomy, Cholecystectomy, Hysterectomy, Tonsillectomy Hx Diabetes: No Scheduled Alendronate Sodium (Fosamax) 70 Mg Tablet 70 MG PO WEEKLY (Reported) Sunday mornings Alprazolam (Xanax) 0.5 Mg Tablet 1 MG PO TID (Reported) Aripiprazole (Abilify) 30 Mg Tablet 30 MG PO HS (Reported) Buspirone (Buspirone) 10 Mg Tablet 10 MG PO TID (Reported) Cholecalciferol (Vitamin D3) (Vitamin D3) 1,000 Unit Tab.chew 6,000 UNIT PO DAILY (Reported) Donepezil (Donepezil) 10 Mg Tablet 10 MG PO HS (Reported) Duloxetine (Cymbalta) 60 Mg Capsule.dr 60 MG PO HS (Reported) Escitalopram Oxalate (Escitalopram Oxalate) 20 Mg Tablet 20 MG PO DAILY ( Reported) Levothyroxine (Levothyroxine) 75 Mcg Tablet 75 MCG PO DAILY (Reported) Lidocaine Cream (Lidocaine Cream) 5 Gm Cream..g. 1 APPLIC TOPICAL BID (Reported ) Lubiprostone (Amitiza) 24 Mcg Capsule 24 MCG PO BIDBL (Reported) Melatonin (Melatonin) 5 Mg Tablet 10 MG PO HS (Reported) Midodrine (Midodrine) 10 Mg Tablet 10 MG PO TID (Reported) Multivitamin (Multi Vitamin Daily) 1 Each Tablet 1 EACH PO DAILY (Reported) Olanzapine (Olanzapine) 10 Mg Tablet 10 MG PO HS (Reported) Omeprazole (Omeprazole) 40 Mg Capsule.dr 40 MG PO DAILY (Reported) Prazosin (Prazosin) 1 Mg Capsule 4 MG PO HS (Reported) Quetiapine Fumarate (Seroquel) 100 Mg Tablet 100 MG PO HS (Reported) Tizanidine (Tizanidine) 4 Mg Capsule 8 MG PO HS (Reported) Tizanidine (Tizanidine) 4 Mg Capsule 4 MG PO BID (Reported) Trazodone (Trazodone) 100 Mg Tablet 400 MG PO HS (Reported) Turmeric Root Extract (Turmeric) 500 Mg Capsule 500 MG PO DAILY (Reported) Scheduled PRN Ondansetron (Ondansetron) 4 Mg Tablet 4 MG PO TID PRN PRN For Nausea (Reported) Ondansetron ODT (Ondansetron ODT) 4 Mg Tab.rapdis 4 MG PO TID PRN PRN For Nausea (Reported) oxyCODONE-Acetaminophen 5-325 mg (oxyCODONE-Acetaminophen 5-325 mg) 1 Each Tablet 1-2 TAB PO Q4-6H PRN PRN For Pain (Reported) Discontinued Medications ([Vitamin B Complex]) 1 TAB PO DAILY (Reported) Diclofenac Gel (Voltaren Gel) 100 Gm Tube 1 APPLIC TOPICAL QID (Reported) Docusate Sodium (Colace) 100 Mg Capsule 100 MG PO DAILY PRN PRN For Constipation (Reported) Magnesium Citrate (Magnesium Citrate) 296 Ml Solution 296 ML PO DAILY PRN PRN For Constipation Drink 1/2 bottle daily for 2 days. Repeat in 1 week. Magnesium Hydroxide (Milk of Magnesia) 400 Mg/5 Ml Oral.susp 15 ML PO DIRECTED PRN PRN For Constipation initially every 6 hours, then adjust to 1-2 times daily in order have soft BMs daily. Melatonin (Melatin) 3 Mg Tablet 5 MG PO HS (Reported) Ondansetron ODT (Ondansetron ODT) 8 Mg Tab.rapdis 8 MG PO Q4H PRN PRN For Nausea Sodium Chloride/Sodium Bicarb (Sinuflo Readyrinse Nasal Kit) 1 Each Kit 1 EACH NS PRN (Reported) oxyCODONE-Acetaminophen 7.5-325 mg (oxyCODONE-Acetaminophen 7.5-325 mg) 1 Each Tablet 1 TAB PO QID PRN PRN For Pain Current Inpatient Medications Current Medications Al Hydrox/Mg Hydrox/Simethicone 30 ml Q6H PRN PO; Start 02/07/17 at 19:20 Ondansetron HCl 4 to 8 mg Q4H PRN IVPUSH Last administered on 02/07/17 20:32; Admin Dose 4 MG; Start 02/07/17 at 19:20 Senna 17.2 mg BID PRN PO; Start 02/07/17 at 19:20 Polyethylene Glycol 17 gm DAILY PRN PO; Start 02/07/17 at 19:20 Alendronate Sodium 70 mg Sa PO; Start 02/10/17 at 07:30 Levothyroxine Sodium 75 mcg DAILYAC PO Last administered on 02/08/17 08:21; Admin Dose 75 MCG; Start 02/08/17 at 07:30 Melatonin 5 mg HS PO Last administered on 02/07/17 22:00; Admin Dose 5 MG; Start 02/07/17 at 21:00 Quetiapine Fumarate 100 mg HS PO Last administered on 02/07/17 22:00; Admin Dose 100 MG; Start 02/07/17 at 21:00 Trazodone HCl 350 mg HS PO; Start 02/07/17 at 21:00; Stop 02/07/17 at 21:00; Status DC Aripiprazole 30 mg HS PO Last administered on 02/07/17 22:00; Admin Dose 30 MG; Start 02/07/17 at 21:00 Buspirone HCl 15 mg BID PO Last administered on 02/08/17 08:21; Admin Dose 15 MG ; Start 02/07/17 at 20:30 Duloxetine HCl 60 mg HS PO Last administered on 02/07/17 22:00; Admin Dose 60 MG ; Start 02/07/17 at 21:00 Midodrine 10 mg 08,12,16 PO Last administered on 02/08/17 08:22; Admin Dose 10 MG; Start 02/08/17 at 08:00 Pantoprazole 40 mg DAILYAC PO Last administered on 02/08/17 08:21; Admin Dose 40 MG; Start 02/08/17 at 07:30 Trazodone HCl 400 mg HS PO; Start 02/07/17 at 21:00; Stop 02/07/17 at 21:25; Status DC Oxycodone/ Acetaminophen 1 tab Q4H PRN PO Last administered on 02/07/17 22:01; Admin Dose 1 TAB; Start 02/07/17 at 20:05 Trazodone HCl 350 mg HS PO Last administered on 02/07/17 22:01; Admin Dose 350 MG; Start 02/07/17 at 21:25 Allergies: Coded Allergies: Sulfa (Sulfonamide Antibiotics) (Verified Allergy, Severe, 01/26/17) ciprofloxacin (Verified Allergy, Severe, 01/26/17) levofloxacin (Verified Allergy, Severe, Anaphylaxis, 01/26/17) Penicillins (Verified Allergy, Unknown, Hives, 01/26/17) metoclopramide (Verified Allergy, Unknown, Hives, 8/25/17) Family History Family History family history significant for depression in mother and 2 daughters Mother had breast CA Social History Hx Alcohol Use: Yes (occasional beer or wine)Hx Substance Use: Yes (eatables) Hx Tobacco Use: No Smoking Status: Never Smoker Living Arrangement: with Family (Lives with her brother in a house) Exam Vital Signs Vital Sign - Last Date Time Temp Pulse Resp B/P Pulse Ox O2 Delivery O2 Flow Rate FiO2 02/08/17 08:19 37.5 72 12 110/58 97 Room Air Intake and Output 02/07/17 02/07/17 02/08/17 Cumulative From/Thru 15:00 23:00 07:00 02/07/17 14:55 - 02/08/17 06:20 Intake Total 1000 ml 1254 ml 2254 ml Output Total 750 ml 750 ml Balance 1000 ml 504 ml 1504 ml Intake Oral 440 ml 440 ml IV Total 1000 ml 814 ml 1814 ml Output Urine Total 750 ml 750 ml # Voids 3 3 # Bowel Movements 0 0 Objective General: No acute distress, well-developed, well-nourished Head: Normocephalic, atraumatic. External ears without defect. Eyes: Pupils equal, round, and reactive to light and accommodation. Anicteric sclerae, moist conjunctivae. Neck: Normal range of motion, no lymphadenopathy noted Cardiovascular: NSR. Regular rate and rhythm with no murmurs, rubs, or gallops appreciated Pulmonary: Clear to auscultation bilaterally with no crackles, wheezes, or rhonchi. Normal respiratory effort with no use of accessory muscles. Abdomen: Bowel tones present. Soft, nontender, nondistended. Extremities: No clubbing, cyanosis, edema. Splint to R hand/wrist. Brace to L foot. Skin: Very barrow, normal temperature, turgor, and texture; no rash, ulcers, or subcutaneous nodules appreciated. Neurological: Cranial nerves grossly intact. Reflexes, coordination, and sensory function within normal limits. Normal muscle strength, tone, and bulk. Psychiatric: Pleasant, cheerful. Laughing and smiling. Alert and oriented to person, place, and time Lab and Diagnostics Result Diagram: 02/08/17 0340 02/08/17 0340 Additional Diagnostics: 12/22/2016 Cardiac Echo Impressions Echocardiogram Interpretation Summary The left ventricle is normal in size. The ejection fraction is estimated to be 60-65%. The right ventricle is normal in size, thickness and function. A patent foramen ovale is suspected. There is moderate mitral regurgitation. Compared to the prior echo study, there has been an increase in the severity of mitral regurgitation. There is mild aortic regurgitation. Compared to the prior echo study, there has been an increase in the severity of aortic regurgitation. There is mild to moderate tricuspid regurgitation. Compared to the prior echo exam, there has been an increase in TR severity. The right ventricular systolic pressure is estimated at 37.5 mmHg assuming a right atrial pressure of 8 mm Hg. Compared to the prior echo exam, there has been an increase in the severity of pulmonary hypertension. 01/29/2017 DAY PHARMACOLOGICAL STRESS TEST 1. Normal myocardial perfusion images. 2. Normal left ventricular volume and systolic function. 3. No chest pain or diagnostic EKG changes for ischemia. Assessment & Plan Resuscitation Status: CPR: Attempt Resuscitation Elaine Mckeon Feb 08, 2017 11:09
[2017-02-08 12:11] VITALS: BP 125/68; PULSE 72; RESP 22; O2SAT 98
--- NOTE | 2017-02-08 13:03 | PCM.DIMED ---
Eyad Cowart DO 02/08/17 1257: Discharge Instructions Date of Service Feb 08, 2017 Dates of Hospitalization Feb 07, 2017 at 17:20 Discharge Diagnosis Discharge Diagnosis Sinus bradycardia Acute encephalopathy secondary to polypharmacy vs accidental overdose Hypotension Mild hyperkalemia Chronic Diagnosis: Chronic kidney disease stage 3 Osteoporosis Hypothyroidism Irritable bowel syndrome with constipation Chronic pain associated with arthritis and fibromyalgia Anxiety/depression, bipolar disorder, chronic Insomnia GERD Medication Instructions Additional med instructions Please continue to take your home medications as previously prescribed except for the following changes: We would like you to begin decreasing your dose of trazodone for sleep from 400 mg at night to 350 mg at night. We highly suggest gradually decreasing your dosage of this medication as it can cause bradycardia, and we believe this to be one of the medications that is currently affecting your heart function. Additionally, multiple studies have shown that efficacy of trazodone for sleep is questionable at doses greater than 50 mg. For these reasons we suggest a slow taper of this medication as tolerated. Additionally, we would like to caution you over the use of opioid medications ( oxycodone) especially in conjunction with Xanax. Your opioid usage has likely increased due to pain in your wrist and foot. While we do not like you to be in pain, the purpose of this medication is to alleviate pain to a point which makes it tolerable. We would like you to only use this medication in situations in which you believes the pain in your foot or wrist is no longer tolerable. Please do not use this medication to become comfortable as this is not its intended purpose. In conjunction with your Xanax medication taking opioids as currently prescribed in conjunction with your decreased kidney function can repress your breathing, as well as your mental status. This can also have an effect on your heart function. In conjunction with decreasing your opioid usage we would also like you to decrease your use of Xanax as tolerated. As we discussed, this medication is best used for anxiety as needed rather than on a scheduled basis. Please do not use more than 3 times per day as currently prescribed, however if you can tolerate using less in any given day this is preferred. Test Results Test Results No imaging was performed during this stay at the hospital. Diet Discharge Diet: No restrictions Activity Discharge Activity: No restrictions Call your provider Call your provider for: Fever or Chills, Shortness of breath, Bleeding, Chest pain, Vomitting, Excessive diarrhea, Weakness (unilateral) Patient Instructions Patient Instructions You were admitted to the hospital for concern over your decreased heart rate. This is possibly due to the variety of medications which you are taking, however other heart pathologies cannot be entirely ruled out at this time. For this reason Dr. Riley would like you to be fitted with a cardiac output monitoring device which will monitor your heart rate over the next week. Please wear this as directed. Please see suggestions for medication management as above. Please discuss these changes with your various doctors who will most assuredly be helpful in decreasing these medications as tolerated. Follow-up plan Please follow-up with your primary care doctor as soon as possible, as well as her psychiatrist. Cardiology would also like you to follow-up with them as an outpatient to further elucidate the reason for your slow heart rate. Follow-up Provider: Carolyn Sharma MD Follow-up with PCP in: 2 weeks Provider: Tosin Rincon Follow-up in: 1 week Pallavi Garcia DO 02/08/17 1651: Discharge Instructions Attending's Statement The patient was seen and examined together with Dr. Cowart on 02/08/17 and I agree with the history, exam and plan as outlined in the note above. Eyad Cowart DO Feb 08, 2017 12:57 Pallavi Garcia DO Feb 08, 2017 16:51
--- NOTE | 2017-02-08 13:32 | NUR ---
Social Work: Initial Assessment/Mulitidiscplinary Rounds/Discharge D: Per EMR review, pt is a 71 year old female admitted for bradycardia, hypotension, AMS. Pt is [facility] with Medicare; pt states she has no LTC or VA benefits. PCP is LUCIE Lind. NOK is Vishal Kirk, anayelier, . Advanced directives completed- Requested copy for chart. Readmit score is high, 6/8. Pt discussed in Multidisciplinary rounds. Capacity for self care discussed; no concerns or needs at this time as pt participates in her own self-care. The patient will likely discharge home today and provider identifies no discharge needs for the patient at this time. ELECTION ASSISTANT met with the patient at bedside. Social work/dcp role explained, contact information and discharge planning checklist provided. See initial assessment. Pt lives in [place] with her brother in a two story home with 3 steps to enter. The patient uses no DME and states she lives on the first floor of her home. Pt expreses no concerns navigating stairs and states that she has never had HH or skilled rehab. Pt states that she does not feel that she will needs supportive services for discharge and states that her brother will transport her home when ready. A: Pt who is I at baseline and lives at home with her brother P: Anticipate pt to discharge home via POV and no further sw needs. CAROLIN Waddell Addendum: 02/08/17 at 1344 by MARIMAR JOSHI Amended: Links added.
--- NOTE | 2017-02-08 13:37 | CONS ---
[address] [address] CONSULTATION REPORT PATIENT: CHUCKIE CALDERA I : 1945 MR#: [id number] ADMIT: 02/07/2017 JOB ID: [id number] DATE OF SERVICE: 02/08/2017 REQUESTED BY: Dr. Villarreal. REASON FOR EVALUATION: Bradycardia. NOTE: I saw and examined the patient. Please see Elaine Mckeon's notes for details. IMPRESSION: 1. No evidence of bradycardia on telemonitor. 2. Normal pharmacologic stress sestamibi on January 29, 2017. 3. Medical noncompliance. 4. Moderate mitral regurgitation. 5. Altered mental status, likely due to polypharmacy. 6. Bipolar disorder. PLAN: The patient can be discharged from the hospital from cardiac standpoint. I would like to evaluate her heart rhythm with Zio monitor for one week as an outpatient. My office will contact the patient. Thank you for allowing me to participate in her care. MCKINLEY
--- NOTE | 2017-02-08 14:11 | NUR ---
Cardio Per cardiology, pt will receive call from their office post discharge, otherwise ready for dc.
--- NOTE | 2017-02-08 15:25 | NUR ---
DC Pt dc'd with in WC at 1525. All discharge paperwork and instructions reviewed and pt verbalized understanding and no further questions. All belongings with pt on dc.
--- NOTE | 2017-02-08 18:02 | PCM.DC.MED ---
Discharge Summary Date of Service Feb 08, 2017 Dates of Hospitalization Date of Hospital Admission Feb 07, 2017 at 17:20 Date of Discharge: Feb 08, 2017 Providers: Admitting Physician: Pallavi Garcia DO Primary Care Physician: Tosin Rincon Attending Physician: Pallavi Garcia DO Diagnosis at Time of Discharge Diagnosis at Time of Discharge Sinus bradycardia Acute encephalopathy secondary to polypharmacy vs accidental overdose Hypotension Mild hyperkalemia Chronic Diagnosis: Chronic kidney disease stage 3 Osteoporosis Hypothyroidism Irritable bowel syndrome with constipation Chronic pain associated with arthritis and fibromyalgia Anxiety/depression, bipolar disorder, chronic Insomnia GERD Consultations Cardiology: Dr. Rosemary Guzman ECG 12 Lead ECG Interpretation: Sinus bradycardia with a rate of 46. Normal axis and intervals. No ST elevation or Q wave abnormalities. When compared to prior dated 12/12/2016 she remains bradycardic. No acute morphological changes. Occasional PVCs no longer present. Time: 15:50 Interpreted by: ED physician Cardiac Echo Impression Echocardiogram Interpretation Summary The left ventricle is normal in size. The ejection fraction is estimated to be 60-65%. The right ventricle is normal in size, thickness and function. A patent foramen ovale is suspected. There is moderate mitral regurgitation. Compared to the prior echo study, there has been an increase in the severity of mitral regurgitation. There is mild aortic regurgitation. Compared to the prior echo study, there has been an increase in the severity of aortic regurgitation. There is mild to moderate tricuspid regurgitation. Compared to the prior echo exam, there has been an increase in TR severity. The right ventricular systolic pressure is estimated at 37.5 mmHg assuming a right atrial pressure of 8 mm Hg. Compared to the prior echo exam, there has been an increase in the severity of pulmonary hypertension. Reading Physician:PM Other Diagnostics 1 DAY PHARMACOLOGICAL STRESS TEST IMPRESSION: 1. Normal myocardial perfusion images. 2. Normal left ventricular volume and systolic function. 3. No chest pain or diagnostic EKG changes for ischemia. Dictated by: Glenn Castillo M.D. on 01/29/2017 at 16:16 Approved by: Glenn Castillo M.D. on 01/29/2017 at 16:21 Brief History This is a pleasant 71 year old female who was admitted on 02-07-2017 for bradycardia and confusion. Significant past medical history; CKD III, bipolar/ depression/anxiety, fibromyalgia, chronic pain. On 02-07-17, she went to her restoration technician for a follow up for a foot surgery she had a week ago. Upon assessment at the restoration technician office, she was found to be bradycardic, hypotensive, and confused. The restoration technician sent her to the ED. Upon arrival, she was found to be bradycardic and hypotensive, and was admitted. She was given atropine, and a 2L bolus of normal saline. Her heart rate and blood pressure subsequently increased. Overnight the patient's blood pressures remained stable, as well as her heart rate. Her decreases and vitals are likely attributable to polypharmacy, especially in the setting of chronic kidney disease. We discussed with the patient the importance of only taking medications as needed especially medication such as opioids and benzodiazepines. It was discussed with the patient that she should continue titrating down on some of her medications and this should be done as an out patient with close follow up with her PCP. The patient was started to be weaned down on her trazadone while here in patient. Patient should continue this wean and weaning of other medications if possible. The patient was also instructed to start scheduled tylenol 650mg Q4 to help with the pain instead of using narcotics. Hospital Course Pt is a 71 year old female with past medical history of CKD stage III, gout, fibromyalgia, IBS, arthritis, chronic pain presenting to the ED brought in by her brother for concern of accidental overdose on prescription drugs. Sinus bradycardia, present on admission, active Likely secondary to polypharmacy vs accidental overdose Echo completed in December shows ejection fraction 60-65% with possible PFO, other results as above Pharmacological stress test completed on 01/29/17 with normal findings, results as above - Heart rate remained in the 40s to 50s during the patient's time in the emergency department - Patient was given 1 L fluid challenge with moderate improvement in pressures and heart rate - Her rate currently 75, blood pressure 137/74 (95) - Per cardiology patient was fitted with cardiac monitoring device prior to discharge Acute encephalopathy secondary to polypharmacy vs accidental overdose, present on admission, active Considering recent foot surgery in combination with the patient's decreased GFR secondary to chronic kidney disease patient is a high risk for accidental overdose Per patient's brother, patient has a prior history of anxiety, depression, bipolar disorder for which she takes a variety of psychiatric medications (as listed below) Patient has a history of suicidal ideation with previous suicide attempt, however this was many years ago Patient currently denies suicidal ideation -Patient appears to be acting appropriately at this time, other than some delayed mentation -Attempt to decrease pain medication as well as benzodiazepine use during this hospital stay. -Psychotic medications may be to blame for this episode, however these will need to be titrated down slowly and monitored closely over a period of months with support of outpatient prescribing facility Hypotension, present on admission, active Likely secondary to accidental overdose/polypharmacy - Cardiology consulted, Dr. Riley following - Continue home midodrine Mild hyperkalemia, present on admission, active - Potassium 5.3 on admission - No interventions required at this time - Continue to monitor Chronic Diagnosis: Chronic kidney disease stage 3 BUN 22, creatinine 1.04 on admission GFR 75 Osteoporosis - Continue alendronate Hypothyroidism - Continue levothyroxine Irritable bowel syndrome with constipation Patient reports no bowel movement 3 days - Continue home docusate PRN - Continue home magnesium citrate PRN Chronic pain associated with arthritis and fibromyalgia - Continue home diclofenac gel when necessary - Continue home Cymbalta - Decrease oxycodone dose as tolerated Anxiety/depression, bipolar disorder, chronic - Continue home aripiprazole 30 mg at bedtime - Continue home buspirone 10 mg TID - Continue home Seroquel - Hold home Xanax Insomnia - Continue melatonin - Decrease home trazodone to 350mg QHS (consider titrating down) GERD - Continue omeprazole Exam Vital Signs (Last) Date Time Temp Pulse Resp B/P Pulse Ox O2 Delivery O2 Flow Rate FiO2 02/08/17 12:11 37.5 72 22 125/68 98 Room Air Exam General: No acute distress, well-developed, well-nourished Head: Normocephalic, atraumatic. External ears without defect. Eyes: Pupils equal, round, and reactive to light and accommodation. Anicteric sclerae, moist conjunctivae. Neck: Normal range of motion, no lymphadenopathy noted Cardiovascular: Regular rate and rhythm with minor diastolic blowing murmur, no rubs, or gallops appreciated Pulmonary: Clear to auscultation bilaterally with no crackles, wheezes, or rhonchi. Normal respiratory effort with no use of accessory muscles. Abdomen: Bowel tones present. Soft, nontender, nondistended. Extremities: No clubbing, cyanosis, edema Skin: [place], normal temperature, turgor, and texture; no rash, ulcers, or subcutaneous nodules appreciated. Neurological: Cranial nerves grossly intact. Reflexes, coordination, and sensory function within normal limits. Normal muscle strength, tone, and bulk. Psychiatric: Blunted affect. Delayed mentation. Alert and oriented to person, place, and time Test 02/07/17 15:59 02/07/17 16:27 02/07/17 20:53 02/07/17 23:08 Neutrophils (%) (Auto) 64.2% (40-74) Lymphocytes (%) (Auto) 22.8% (14-46) Monocytes (%) (Auto) 10.1% (4-12) Eosinophils (%) (Auto) 2.0% (0-5) Basophils (%) (Auto) 0.6% (0-3) Troponin T < 0.010ug/L (0.0-0.011) Salicylates Level < 3.0ug/mL (30-250) Acetaminophen Level < 15.0ug/mL Rx (10-25) Alcohols < 10mg/dL (0-10) Hold [place] Top Tube Received (Received) Hold Urine Received (Received) Urine Color Straw (YELLOW) Urine Appearance Clear (CLEAR,HAZY) Urine pH 5.5 (5.0-8.0) Urine Specific [place] 1.004 (1.003-1.035) Urine Protein Negativemg/dL (NEG,TRACE) Urine Glucose (UA) Negativemg/dL (NEGATIVE) Urine Ketones Negativemg/dL (NEGATIVE) Urine Occult Blood Negative (NEGATIVE) Urine Nitrite Negative (NEGATIVE) Urine Bilirubin Negative (NEGATIVE) Urine Urobilinogen Normalmg/dL (NORMAL) Urine Leukocyte Esterase Negative (NEGATIVE) Urine RBC 0-2/hpf (0-2) Urine WBC 0-5/hpf (0-5) Urine Epithelial Cells Occasional/hpf (NONE-MOD) Urine Crystals None seen (NONE SEEN) Urine Bacteria None/hpf (NONE-FEW) Urine Hyaline Casts None/lpf (NONE) Urine Granular Casts None seen (NONE SEEN) Urine Waxy Casts None seen (NONE SEEN) Urine Red Blood Cell Casts None seen (NONE SEEN) Urine White Blood Cell Casts None seen (NONE SEEN) Urine Mucus None seen (None Seen) Urine Trichomonas None seen (NONE SEEN) Urine Yeast None (NONE SEEN) Urine Culture Reflexed Not indicated Test 02/08/17 03:40 White Blood Count 4.8th/mm3 (3.8-10.1) Red Blood Count 4.51mil/mm3 (3.90-5.20) Hemoglobin 13.1g/dL (12.0-15.6) Hematocrit 39.8% (35.0-46.0) Mean Corpuscular Volume 88.2fL (81-100) Mean Corpuscular Hemoglobin 29.0pg (27.0-35.0) Mean Corpuscular Hemoglobin Concent 32.9% (32.0-37.0) Red Cell Distribution Width 13.3% (12.3-15.4) Platelet Count 327bil/L (150-400) Sodium Level 142mEq/L (134-144) Potassium Level 4.5mEq/L (3.5-5.2) Chloride Level 104mEq/L (97-108) Carbon Dioxide Level 21mmol/L (18-29) Blood Urea Nitrogen 17mg/dL (8-27) Creatinine 0.93mg/dL (0.57-1.00) Estimat Glomerular Filtration Rate 85mL/min (>59) Glucose Level 92mg/dL (60-99) Calcium Level 8.9mg/dL (8.5-10.1) Phosphorus Level 4.1mg/dL (2.5-4.9) Magnesium Level 2.2mg/dL (1.6-2.6) Total Bilirubin 0.3mg/dL (0.0-1.2) Aspartate Amino Transf (AST/SGOT) 13U/L (0-50) Alanine Aminotransferase (ALT/SGPT) 10U/L (0-32) Alkaline Phosphatase 57U/L (25-165) Pro-B-Type Natriuretic Peptide 230.2pg/mL (0-301) Total Protein 5.9g/dL (6.4-8.4) Albumin 3.8g/dL (3.4-5.0) Thyroid Stimulating Hormone (TSH) 1.020uIU/mL (0.450-4.500) Discharge Medications Discharge Medications Alendronate Sodium (Fosamax) 70 Mg Tablet 70 MG PO WEEKLY (Reported) Sunday mornings Alprazolam (Xanax) 0.5 Mg Tablet 1 MG PO TID (Reported) Aripiprazole (Abilify) 30 Mg Tablet 30 MG PO HS (Reported) Buspirone (Buspirone) 10 Mg Tablet 10 MG PO TID (Reported) Cholecalciferol (Vitamin D3) (Vitamin D3) 1,000 Unit Tab.chew 6,000 UNIT PO DAILY (Reported) Donepezil (Donepezil) 10 Mg Tablet 10 MG PO HS (Reported) Duloxetine (Cymbalta) 60 Mg Capsule.dr 60 MG PO HS (Reported) Escitalopram Oxalate (Escitalopram Oxalate) 20 Mg Tablet 20 MG PO DAILY ( Reported) Levothyroxine (Levothyroxine) 75 Mcg Tablet 75 MCG PO DAILY (Reported) Lidocaine Cream (Lidocaine Cream) 5 Gm Cream..g. 1 APPLIC TOPICAL BID (Reported ) Lubiprostone (Amitiza) 24 Mcg Capsule 24 MCG PO BIDBL (Reported) Melatonin (Melatonin) 5 Mg Tablet 10 MG PO HS (Reported) Midodrine (Midodrine) 10 Mg Tablet 10 MG PO TID (Reported) Multivitamin (Multi Vitamin Daily) 1 Each Tablet 1 EACH PO DAILY (Reported) Olanzapine (Olanzapine) 10 Mg Tablet 10 MG PO HS (Reported) Omeprazole (Omeprazole) 40 Mg Capsule.dr 40 MG PO DAILY (Reported) Prazosin (Prazosin) 1 Mg Capsule 4 MG PO HS (Reported) Quetiapine Fumarate (Seroquel) 100 Mg Tablet 100 MG PO HS (Reported) Tizanidine (Tizanidine) 4 Mg Capsule 8 MG PO HS (Reported) Tizanidine (Tizanidine) 4 Mg Capsule 4 MG PO BID (Reported) Trazodone (Trazodone) 100 Mg Tablet 400 MG PO HS (Reported) Turmeric Root Extract (Turmeric) 500 Mg Capsule 500 MG PO DAILY (Reported) As needed Ondansetron (Ondansetron) 4 Mg Tablet 4 MG PO TID PRN PRN For Nausea (Reported) Ondansetron ODT (Ondansetron ODT) 4 Mg Tab.rapdis 4 MG PO TID PRN PRN For Nausea (Reported) oxyCODONE-Acetaminophen 5-325 mg (oxyCODONE-Acetaminophen 5-325 mg) 1 Each Tablet 1-2 TAB PO Q4-6H PRN PRN For Pain (Reported) Additional med instructions Please continue to take your home medications as previously prescribed except for the following changes: We would like you to begin decreasing your dose of trazodone for sleep from 400 mg at night to 350 mg at night. We highly suggest gradually decreasing your dosage of this medication as it can cause bradycardia, and we believe this to be one of the medications that is currently affecting your heart function. Additionally, multiple studies have shown that efficacy of trazodone for sleep is questionable at doses greater than 50 mg. For these reasons we suggest a slow taper of this medication as tolerated. Additionally, we would like to caution you over the use of opioid medications ( oxycodone) especially in conjunction with Xanax. Your opioid usage has likely increased due to pain in your wrist and foot. While we do not like you to be in pain, the purpose of this medication is to alleviate pain to a point which makes it tolerable. We would like you to only use this medication in situations in which you believes the pain in your foot or wrist is no longer tolerable. Please do not use this medication to become comfortable as this is not its intended purpose. In conjunction with your Xanax medication taking opioids as currently prescribed in conjunction with your decreased kidney function can repress your breathing, as well as your mental status. This can also have an effect on your heart function. In conjunction with decreasing your opioid usage we would also like you to decrease your use of Xanax as tolerated. As we discussed, this medication is best used for anxiety as needed rather than on a scheduled basis. Please do not use more than 3 times per day as currently prescribed, however if you can tolerate using less in any given day this is preferred. Followup Plan Disposition: Home Follow-up plan Please follow-up with your primary care doctor as soon as possible, as well as her psychiatrist. Cardiology would also like you to follow-up with them as an outpatient to further elucidate the reason for your slow heart rate. Discharge Diet: No restrictions Discharge Activity: No restrictions Patient Instructions You were admitted to the hospital for concern over your decreased heart rate. This is possibly due to the variety of medications which you are taking, however other heart pathologies cannot be entirely ruled out at this time. For this reason Dr. Riley would like you to be fitted with a cardiac output monitoring device which will monitor your heart rate over the next week. Please wear this as directed. Please see suggestions for medication management as above. Please discuss these changes with your various doctors who will most assuredly be helpful in decreasing these medications as tolerated. Follow-up Provider: Carolyn Sharma MD Follow-up with PCP in: 2 weeks Provider: Tosin Rincon Follow-up in: 1 week Time spent Greater than 35 minutes Attending Statement The patient was seen and examined together with Dr. Cowart on 02/08/17 and I have added additional information to the note above. copies to: Tosin Rincon Adam J DO Feb 08, 2017 18:02 Pallavi Garcia DO Feb 08, 2017 21:38
== END 2017-02-08 15:20 | disposition home or self-care (01) | DRG 308 ==
LOC: SED 14:51 → PCC 17:20
PROVIDERS: ADMIT Neuromusculoskeletal Medicine & OMM; ATTEND Neuromusculoskeletal Medicine & OMM
DX: R00.1 Bradycardia, unspecified (principal); G92 Toxic encephalopathy; N18.3 Chronic kidney disease, stage 3 (moderate); K58.1 Irritable bowel syndrome with constipation; E87.5 Hyperkalemia; E86.0 Dehydration; M79.7 Fibromyalgia; F41.8 Other specified anxiety disorders; E03.9 Hypothyroidism, unspecified; K21.9 Gastro-esophageal reflux disease without esophagitis; G47.00 Insomnia, unspecified; I34.0 Nonrheumatic mitral (valve) insufficiency; T42.4X5A Adverse effect of benzodiazepines, initial encounter; T39.1X5A Adverse effect of 4-Aminophenol derivatives, initial encounter; Y92.009 Unspecified place in unspecified non-institutional (private) residence as the place of occurrence of the external cause